=== PATIENT | female | born 1995 | race Caucasian/White ===

== ENCOUNTER 2023-01-22 09:24 | Outpatient (CLI) | payer BC, SELFPAY | END 2023-01-22 09:25 | disposition home or self-care (01) | PROVIDERS: Visit Provider Obstetrics & Gynecology | DX: O20.9 Hemorrhage in early pregnancy, unspecified (principal) | CPT/HCPCS: 84702; 86850; 86900; 86901 ==

== ENCOUNTER 2023-01-24 10:09 | Outpatient (CLI) | payer BC, SELFPAY | END 2023-01-24 10:10 | disposition home or self-care (01) | LOC: NFLDREF 01-26 05:50 | PROVIDERS: Visit Provider Obstetrics & Gynecology | DX: O20.9 Hemorrhage in early pregnancy, unspecified (principal) | CPT/HCPCS: 84702 ==

== ENCOUNTER 2023-01-31 09:50 | Outpatient (CLI) | payer BC, SELFPAY | END 2023-01-31 09:51 | disposition home or self-care (01) | LOC: NFLDREF 02-03 17:58 | PROVIDERS: Visit Provider Obstetrics & Gynecology | DX: O03.9 Complete or unspecified spontaneous abortion without complication (principal) | CPT/HCPCS: 84702 ==

== ENCOUNTER 2023-02-07 09:35 | Outpatient (CLI) | payer BC, SELFPAY | END 2023-02-07 09:36 | disposition home or self-care (01) | LOC: NFLDREF 02-08 01:53 | PROVIDERS: Visit Provider Obstetrics & Gynecology | DX: O03.9 Complete or unspecified spontaneous abortion without complication (principal) | CPT/HCPCS: 84702 ==

== ENCOUNTER 2023-02-19 09:24 | Outpatient (CLI) | payer BC, SELFPAY | END 2023-02-19 09:25 | disposition home or self-care (01) | LOC: NFLDREF 02-21 10:17 | PROVIDERS: Visit Provider Obstetrics & Gynecology | DX: O03.9 Complete or unspecified spontaneous abortion without complication (principal) | CPT/HCPCS: 84702 ==

== ENCOUNTER 2023-05-17 08:05 | Outpatient (CLI) | payer BC, SELFPAY ==
--- NOTE | 2023-05-17 08:15 | CRLHL7_ITS ---
For Patients: As a result of the Cures Act, medical imaging exams and procedure reports are released immediately into your electronic medical record. You may view this report before your referring provider. If you have questions, please contact your health care provider. INDICATION: First trimester scan, establish dates. COMPARISON: None. TECHNIQUE: Real-time lockett-scale imaging of the pelvis was performed. FINDINGS: Sonographic imaging demonstrates a single living intrauterine gestation. The embryo demonstrates a regular cardiac rate measuring 141 beats per minute. The embryo`s crown-rump length measurement of 0.9 cm corresponds to a gestational age of 6 weeks 6 days with a sonographic due date of 01/04/2024. There is a normal-appearing yolk sac. There are no gross abnormalities noted within the embryo at this early state of development. The gestational sac has a normal appearance. There is no evidence of a perigestational hemorrhage. The amount of fluid within the sac appears appropriate for gestational age. The cervix is closed. The myometrium appears normal. The ovaries are of normal size. Corpus luteal cyst left ovary. There are no suspicious fluid collections noted in the cul-de-sac. IMPRESSION: Normal first trimester OB ultrasound exam. Gestational age calculated at 6 weeks 6 days with a sonographic due date of 01/04/2024. Dictated by Baljit Sandoval MD @ 05/17/2023 10:07:15 AM (Electronically Signed)
== END 2023-05-17 08:06 | disposition home or self-care (01) ==
LOC: US 08:06
PROVIDERS: Visit Provider Registered Nurse
DX: Z34.91 Encounter for supervision of normal pregnancy, unspecified, first trimester (principal); Z3A.01 Less than 8 weeks gestation of pregnancy
CPT/HCPCS: 76817; 86703; 86706; 86803; 86850; 86900; 86901; 87086; 87340; 87491; 87591

== ENCOUNTER 2023-05-17 09:31 | Outpatient (CLI) | payer BC, SELFPAY ==
[2023-05-17 19:16] LABS: Chlamydia DNA Amplified* Not Detected (No Detected); GC DNA Amplified* Not Detected (No Detected)
== END 2023-05-17 09:32 | disposition home or self-care (01) ==
PROVIDERS: PCP Physician Assistant; Visit Provider Physician Assistant
DX: Z34.81 Encounter for supervision of other normal pregnancy, first trimester (principal)
CPT/HCPCS: 86592; 86703; 86704; 86706; 86762; 86787; 86803; 86850; 86900; 86901; 87086; 87340; 87491; 87591

== ENCOUNTER 2023-08-17 09:03 | Outpatient (CLI) | payer BC, MEDICAID, SELFPAY ==
--- NOTE | 2023-08-17 09:15 | US_ITS ---
Patient: KAMRYN LOCKE Facility:?[facility] Patient ID:?[id number] Site Patient ID:?[id number]. Site :?[id number] Study:?US-OB Pelvis OB > 14wks-08/17/2023 10:52:22 AM Ordering Physician:Li Koenig Final Report: INDICATION: Evaluate anatomy. COMPARISON: 06/26/2023, 05/17/2023 TECHNIQUE: Real time lockett scale imaging of the fetus was performed as well as color Doppler analysis of the umbilical vessels. FINDINGS: Sonographic imaging demonstrates a single living intrauterine gestation. Fetus demonstrates a regular cardiac rate of 138 beats per minute. Fetus has a vertex position. The placenta lies posteriorly without evidence of placenta previa. Placental edge 5.7 cm from the internal cervical os. Amniotic fluid volume appears normal. Single deepest vertical pocket: 3.5 cm. The cervix is closed and measures 3.9 cm in length. The composite ultrasound gestational age is calculated at 20 weeks 5 days with an estimated sonographic due date of 12/30/2023. The estimated weight is 380 grams which lies at the 88th %. The following biometric measurements were obtained: Biparietal diameter: 4.9 cm/20 weeks 6 days 82nd% Head circumference: 17.9 cm/20 weeks 2 days 58th% Abdominal circumference: 15.7 cm/20 weeks 6 days 73rd% Femur length: 3.5 cm/20 weeks 6 days 73rd% The HC/AC ratio measures: 1.14 range (1.06-1.25) On anatomic survey, there is a normal appearance of the cerebral ventricles, cavum septi pellucidi, cisterna magna and cerebellum. The nose, lips, and facial profile appear normal. The cervical, thoracic and lumbar spine are well visualized and appear normal. There is a normal four-chamber heart view and the left and right ventricular outflow tracts appear normal. The diaphragm and stomach appear normal. Normal bladder. Bilateral renal pelviectasis measuring 5.8 millimeters on the right and 4.6 millimeters on the left. There is a normal three-vessel cord and cord insertion site. The four extremities appear normal. IMPRESSION: Concordance of clinical and sonographic dating. Bilateral renal pelviectasis. Follow-up in the 3rd trimester recommended. Remainder of the anatomic survey is normal. Dictated by Baljit Sandoval MD @ 08/17/2023 12:12:44 PM Signed by:?Baljit Sandoval MD @08/17/2023 12:12:44 PM (Electronic Signature)
== END 2023-08-17 09:04 | disposition home or self-care (01) ==
LOC: US 09:04
PROVIDERS: Visit Provider Obstetrics & Gynecology
DX: Z34.92 Encounter for supervision of normal pregnancy, unspecified, second trimester (principal); Z3A.20 20 weeks gestation of pregnancy
CPT/HCPCS: 76805

== ENCOUNTER 2023-10-12 09:32 | Outpatient (CLI) | payer MEDICAID, SELFPAY ==
--- NOTE | 2023-10-12 10:00 | CRLHL7_ITS ---
For Patients: As a result of the Century Cures Act, medical imaging exams and procedure reports are released immediately into your electronic medical record. You may view this report before your referring provider. If you have questions, please contact your health care provider. INDICATION: Follow-up renal pelviectasis COMPARISON: 08/17/2023 TECHNIQUE: Real-time lockett-scale imaging of the pelvis was performed. FINDINGS: heart rate 149 beats per minute. Vertex position. Left posterior placenta. Amniotic fluid volume is normal with 6.0 cm single deepest pocket. Left renal pelvis measures 4 millimeters. Right renal pelvis measures 2 millimeters. Previously, the renal pelvis measured 5-6 millimeters. IMPRESSION: The renal pelvis has decreased bilaterally since the prior study with both measurements within normal limits at this gestational age. Dictated by Baljit Sandoval MD @ 10/14/2023 7:01:57 AM (Electronically Signed)
== END 2023-10-12 09:33 | disposition home or self-care (01) ==
LOC: US 09:39
PROVIDERS: Visit Provider Obstetrics & Gynecology
DX: O99.013 Anemia complicating pregnancy, third trimester (principal); Z3A.28 28 weeks gestation of pregnancy
CPT/HCPCS: 76816; 82728; 86592

== ENCOUNTER 2023-11-13 17:15 | Outpatient (CLI) | payer BC, MEDICAID, SELFPAY ==
[2023-11-13 17:29] VITALS: BP 103/71; PULSE 101
[2023-11-13 17:30] VITALS: RESP 16; TEMP 36.8
[2023-11-13 17:43] VITALS: PULSE 99; O2SAT 98
[2023-11-13 18:22] LABS: Basophils Percent Auto 0.2 % (0.0-3.0); Hematocrit 28.9 % (33.0-51.0); Hemoglobin* 9.4 gm/dL (12.0-16.0); Immature Granulocytes Pct Auto 1.2 %; Lymphocytes Percent Auto 15.5 % (20-44); Mean Corpuscular HGB Conc 33 gm/dL (32-36); Mean Corpuscular Hemoglobin 27 pg (26-34); Mean Corpuscular Volume 83 fL (80-100); Monocytes Percent Auto 6.7 % (0.0-11.0); Neutrophils Percent Auto 75.4 % (42.0-72.0); Platelet Count* 231 K/uL (140-440); RDW Coefficient of Variation % 13.6 % (11.5-15.5); Red Blood Count 3.49 m/uL (4.00-5.20); White Blood Count* 11.24 K/uL (4.50-11.00)
[2023-11-13 18:30] LABS: Slide Review Reflex No
[2023-11-13 18:32] LABS: Albumin* 3.6 g/dL (3.3-5.0)
[2023-11-13 18:33] LABS: Chloride* 107 mmol/L (96-114); Potassium* 3.9 mmol/L (3.6-5.1); Sodium* 132 mmol/L (135-149)
[2023-11-13 18:35] LABS: Anion Gap 4 mEq/L (7-15); Aspartate Amino Transferase* 20 U/L (12-35); Bilirubin Total* 0.3 mg/dL (0.1-1.5); Carbon Dioxide* 21 mmol/L (20-32); Creatinine* 0.6 mg/dL (0.5-1.5); Estimated Glomerular Filt Rate 125 ml/min
[2023-11-13 18:36] LABS: Alanine Aminotransferase* 13 U/L (4-35); Alkaline Phosphatase* 92 U/L (40-150); Blood Urea Nitrogen* 14 mg/dL (5-24); Calcium* 9.1 mg/dL (8.4-10.6); Glucose* 90 mg/dL (60-115); Total Protein* 6.6 g/dL (6.0-8.3)
--- NOTE | 2023-11-13 18:39 | PM.OBLDTN ---
OB - Triage/Final Diagnosis Visit Information Time Seen by Provider: 18:00 Date Seen: 11/13/23 Date of evaluation: 11/13/23 Narrative: The patient is a 28 year old 1 para 0 at 32.4 weeks gestation by US, who presents for evaluation after having a near syncopal episode. She reported being a work and feeling flushed, sweating, and mildly nauseous. She stood up at that time and felt like she was going to pass out. She did not fall as a co-worker was able to support her. 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 She considers this high for her. Since then she's felt better but wanted to come in for an evaluation. She does feel dehydrated and that she doesn't frequently drink enough water. Endorses fatigue and intermittent dizziness with quick change in positioning. Discussed with patient that her anemia is a significant factor in these symptoms. She has not received her iron infusion yet. I will send a note to health science instructor to follow up on her iron infusion. Active movement. No labor symptoms. Denies Ctx, LOF, vaginal bleeding or abnormal vaginal discharge. Patient denies fever, chills, chest pain, SOB, n/v, headache, pain, hematuria or dysuria. Denies any recent illness exposure. Physical exam: General: No acute distress Psych: Alert and oriented x4, full affect HEENT: Normocephalic, atraumatic Heart: Regular rate and rhythm, no murmur rub or gallop Lungs: Clear to auscultation bilaterally Abdomen: Gravid. Soft, no tenderness, rebound, or guarding Skin: No lesions or rashes Lower extremities: No edema or erythema Pelvic exam: Deferred Plan: #Anemia - Hgb of 9.4 - Will order IV iron to be done in the outpatient setting #Vasovagal episode - BP WNL in triage - HR mild tachycardia in 100s. - Physical exam reassuring - Will PO hydrate for alleviation of symptoms - Pending CBC and CMP Wellbeing NST: 120s bpm, moderate variability, multiple accelerations, negative decelerations [place]: Irregular contractions, not palpable to patient. Next visit on 11/14. Evaluation Laboratory results: Laboratory Tests 11/13/23 Range/Units 18:10 WBC 11.24 H (4.50-11.00) K/uL RBC 3.49 L (4.00-5.20) m/uL Hgb 9.4 L (12.0-16.0) gm/dL Hct 28.9 L (33.0-51.0) % MCV 83 (80-100) fL MCH 27 (26-34) pg MCHC 33 (32-36) gm/dL RDW Coeff of Ethel 13.6 (11.5-15.5) % Plt Count 231 (140-440) K/uL Neut % (Auto) 75.4 H (42.0-72.0) % Lymph % (Auto) 15.5 L (20-44) % Crane % (Auto) 6.7 (0.0-11.0) % Eos % (Auto) 1.0 (0.0-7.0) % Baso % (Auto) 0.2 (0.0-3.0) % Neut # (Auto) 8.50 H (1.7-7.0) K/uL Lymph # (Auto) 1.70 (0.90-2.90) K/uL Crane # (Auto) 0.80 (0.00-0.90) K/UL Eos # (Auto) 0.10 (0.00-0.50) K/uL Baso # (Auto) 0.00 (0.00-0.30) K/uL Abs Immat Gran (auto) 0.10 (0.00-0.30) K/uL Imm/Tot Granulo (auto) 1.2 % Sodium Pending Potassium Pending Chloride Pending Carbon Dioxide Pending Anion Gap Pending BUN Pending Creatinine Pending Estimated GFR Pending Glucose Pending Calcium Pending Total Bilirubin Pending AST Pending ALT Pending Alkaline Phosphatase Pending Total Protein Pending Albumin Pending Vital signs: Vital Signs - 24 hr 11/13/23 17:29 11/13/23 17:30 11/13/23 17:43 Temperature 98.3 F Pulse Rate 101 H Respiratory Rate 16 Blood Pressure 103/71 Pulse Oximetry 98
--- NOTE | 2023-11-13 19:27 | PC.OBNST ---
NST Note NST Note Start: 11/13/23 17:31 Freq: ONCE Status: Active Protocol: Document 11/13/23 19:25 LINDSAY (Rec: 11/13/23 19:26 JRAdrián [id number]) NST Note 2 Para (# of births) 0 EDC 01/04/24 Gestational Age In Weeks & Days 32 Weeks & 4 Days Patient Presented with Complaint(s) of Other If Observation after an injury, describe Pt. passed out earlier Reactive Yes Appropriate for Gestational Age Yes RN Tae Weiss RN Date 11/13/23 Reactive Yes Appropriate for Gestational Age Yes MADDISON Wilson RN Date 11/13/23 OB NST charge Yes Complete NST Note via Write Note Yes The provider's electronic signature indicates the NST is reactive/appropriate for gestational age. *Note to provider: If an addendum is required, open the patient's chart and click on the note under the Nurse/Allied Health tab.
== END 2023-11-13 19:02 | disposition home or self-care (01) ==
LOC: OB OUT 17:16 → OB 17:23
PROVIDERS: Visit Provider Obstetrics & Gynecology
DX: O26.893 Other specified pregnancy related conditions, third trimester (principal); R55 Syncope and collapse; Z3A.32 32 weeks gestation of pregnancy
CPT/HCPCS: 36415; 59025; 80053; 85025; G0463

== ENCOUNTER 2023-11-15 09:16 | Outpatient (CLI) | payer BC, MEDICAID, SELFPAY ==
--- NOTE | 2023-11-15 09:15 | CRLHL7_ITS ---
For Patients: As a result of the Century Cures Act, medical imaging exams and procedure reports are released immediately into your electronic medical record. You may view this report before your referring provider. If you have questions, please contact your health care provider. INDICATION: size discrepancy, decreased movement TECHNIQUE: Real time lockett scale imaging of the fetus was performed. COMPARISON: 10/12/2023 FINDINGS: Sonographic imaging demonstrates a single living intrauterine gestation. Fetus demonstrates a regular cardiac rate of 131 beats per minute. Fetus has a vertex position. The placenta lies left posterior. Amniotic fluid volume appears normal and there is a single deepest pocket of 5.6 cm. The estimated weight is 2092gm which lies at the 44th %. On the prior OB ultrasound dated 08/17/2023 the estimated weight was at the 88th percentile. Left renal pelviectasis present measuring 7.7 millimeters, previously measuring 5 millimeters. Resolution of the right-sided pelviectasis. The fetus was active and demonstrated normal breathing movements. There was normal flexion and extension of the trunk and extremities. IMPRESSION: Normal biophysical profile score 8/8. Sonographic gestational age 33 weeks 0 days and a sonographic due date 01/03/2024. Good correlation with dates. Normal interval growth. Estimated weight 44th percentile. Abdominal circumference 53rd percentile. Left renal pelviectasis measuring 7.7 millimeters. follow-up recommended. Dictated by Baljit Sandoval MD @ 11/16/2023 6:36:56 AM (Electronically Signed)
== END 2023-11-15 09:17 | disposition home or self-care (01) ==
LOC: US 09:16
PROVIDERS: Visit Provider Obstetrics & Gynecology
DX: O26.849 Uterine size-date discrepancy, unspecified trimester (principal); O36.8930 Maternal care for other specified fetal problems, third trimester, not applicable or unspecified; Z3A.33 33 weeks gestation of pregnancy
CPT/HCPCS: 76816; 76819; 82728

== ENCOUNTER 2023-11-15 10:57 | Outpatient (RCR) | payer BC, MEDICAID, SELFPAY ==
--- NOTE | 2023-11-15 07:37 | URNOTE ---
Per Availity prior auth is not required for Infed ([id number]). ref #[id number]
[2023-11-15 11:15] VITALS: BP 102/64; PULSE 92; RESP 16; TEMP 36.5; O2SAT 100
[2023-11-15] MEDS: IRON DEXTRAN COMPLEX 25 MG in 0.9 % SODIUM CHLORIDE 100 ml 100 ML 402 MG IVPB (11:31)
[2023-11-15 11:52] VITALS: BP 113/78; PULSE 92; RESP 16; TEMP 36.9; O2SAT 100
[2023-11-15] MEDS: IRON DEXTRAN COMPLEX 975 MG in 0.9 % SODIUM CHLORIDE 250 ml 250 ML 269 MG IVPB (13:00)
[2023-11-15 14:15] VITALS: BP 116/73; PULSE 71; RESP 16; TEMP 36.5; O2SAT 98
[2023-11-15 14:45] VITALS: BP 114/75; PULSE 74; RESP 16; TEMP 36.4; O2SAT 98
== END 2024-05-13 23:59 | disposition home or self-care (01) ==
LOC: CCIC 10:57
PROVIDERS: PCP Obstetrics & Gynecology; Visit Provider Clinical Nurse Specialist
DX: O99.019 Anemia complicating pregnancy, unspecified trimester (principal)
CPT/HCPCS: 76816; 76819; 82728; 96365; 96376; J1750; J7050

== ENCOUNTER 2023-11-22 09:54 | Outpatient (CLI) | payer BC, MEDICAID, SELFPAY ==
--- NOTE | 2023-11-22 10:00 | CRLHL7_ITS ---
For Patients: As a result of the Century Cures Act, medical imaging exams and procedure reports are released immediately into your electronic medical record. You may view this report before your referring provider. If you have questions, please contact your health care provider. INDICATION: Decreased movements COMPARISON: none TECHNIQUE: Real time lockett scale imaging of the fetus was performed. Without non-stress testing. FINDINGS: Sonographic imaging demonstrates a single living intrauterine gestation. Fetus demonstrates a regular cardiac rate of 129 beats per minute. Fetus has a vertex position. The amniotic fluid volume appears somewhat echogenic and there is a single deepest pocket measurement of 7.2 cm. The fetus was active and demonstrated normal breathing movements. There was normal flexion and extension of the trunk and extremities. Kidneys are normal without pelviectasis. IMPRESSION: Normal biophysical profile score of 8 out of 8. Echogenic foci in the amniotic fluid. Kidneys are normal. Normal nose and lips. Dictated by Baljit Sandoval MD @ 11/23/2023 5:24:51 AM (Electronically Signed)
== END 2023-11-22 09:55 | disposition home or self-care (01) ==
LOC: US 09:54
PROVIDERS: Visit Provider Obstetrics & Gynecology
DX: O36.8190 Decreased fetal movements, unspecified trimester, not applicable or unspecified (principal)
CPT/HCPCS: 76819

== ENCOUNTER 2023-12-05 11:04 | Outpatient (CLI) | payer BC, MEDICAID, SELFPAY ==
--- NOTE | 2023-12-05 11:30 | CRLHL7_ITS ---
For Patients: As a result of the Century Cures Act, medical imaging exams and procedure reports are released immediately into your electronic medical record. You may view this report before your referring provider. If you have questions, please contact your health care provider. Indication: Vaginal spotting, asses placenta/ abruption, BPP, recheck renal. f/u growth. JOSE ENRIQUE: 01/04/2024 Technique: Real-time sonographic images of the pelvis were obtained transabdominally using grayscale, color, and Doppler imaging. Comparison: 11/22/2023 Findings: A single intrauterine is present in cephalic position. Cardiac activity in the fetus is demonstrated at 137 BPM. Mildly dilated left renal pelvis measuring 9.7 millimeter. GROWTH PARAMETER SIZE (cm) ESTIMATED AGE Biparietal diameter: 8.9 35 weeks 6 days Head circumference: 32.5 36 weeks 5 days Abdominal circumference: 31.9 35 weeks 6 days Femur length: 7.0 36 weeks 1 day Average Ultrasound Age (AUA) based on this exam: 36 weeks 1 day. JOSE ENRIQUE based on the AUA from this exam: 01/01/2024. Estimated weight (EFW): 2828 gm +/-424 gm. This corresponds to the 59 percentile based on the established JOSE ENRIQUE. HC/AC= 1.02 FL/AC= 22% Placenta: Posterior left. No previa or abruption. Amniotic Fluid: Single deepest pocket 6.5 centimeter. Biophysical profile: Breathin/2 Movement: 2/2 Tone: 2/2 Fluid volume: 2/2 Total: 88 Cervix is closed, measuring 3.5 centimeter in length. Impression: 1. Single living intrauterine gestation measuring 36 weeks 1 day by ultrasound in cephalic presentation, with heartrate 137 BPM. 2. Posterior left placenta without previa or abruption. 3. Amniotic fluid single deepest pocket measuring 6.5 centimeter. 4. BPP 8/8. 5. Mildly dilated left renal pelvis measuring 9.7 millimeter. No dilated ureter or urinary bladder is seen. Findings may represent ureteropelvic junction obstruction. Recommend continued attention on follow-up. Dictated by Mike Palomino MD @ 12/05/2023 12:26:35 PM (Electronically Signed)
== END 2023-12-05 11:05 | disposition home or self-care (01) ==
LOC: US 11:05
PROVIDERS: Visit Provider Obstetrics & Gynecology
DX: O46.93 Antepartum hemorrhage, unspecified, third trimester (principal); O35.EXX0 Maternal care for other (suspected) fetal abnormality and damage, fetal genitourinary anomalies, not applicable or unspecified; Z3A.36 36 weeks gestation of pregnancy
CPT/HCPCS: 76816; 76819; 87081; 87491; 87591; 87653

== ENCOUNTER 2023-12-05 12:01 | Outpatient (CLI) | payer BC, MEDICAID, SELFPAY ==
[2023-12-05 12:06] VITALS: PULSE 108; O2SAT 99
[2023-12-05 12:07] VITALS: BP 113/69; PULSE 99
[2023-12-05 13:53] LABS: Appearance Urine Clear (Clear); Bilirubin Urine Negative (Negative); Blood Urine 2+ (Negative); Color Urine Yellow (Yellow); Glucose Urine Negative (Negative); Ketones Urine Negative (Negative); Leukocyte Esterase Urine Trace (Negative); Nitrite Urine Negative (Negative); Protein Urine Negative (Negative); Urobilinogen Urine 0.2 (0.2-1.0)
[2023-12-05 14:41] LABS: Bacteria Urine Few; WBC Urine 0-2 (0-5)
--- NOTE | 2023-12-05 15:48 | P.OBLDTN_ITS ---
OB - Triage/Final Diagnosis Visit Information Time Seen by Provider: 16:00 Date Seen: 12/05/23 Narrative: The patient is a 28 year old at 35 weeks gestation by first trimester US who presents with vaginal bleeding. is complicated by history of vertebral artery dissection, anemia (s/p IV iron infusion), pyelectasis, celiac disease. She notes onset of some red blood on toilet paper in the bowel on Sunday, with pink/brown noted on subsequent wiping. 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 She was seen today in clinic by Nguyen Sarmiento, where upon pelvic exam no blood was noted in the vaginal vault. Proctoswab was utilized to evacuated cervical mucous, with note of bright red bleeding resulting. I was consulted and presented to the room. In clinic, I repeated her speculum exam where cervix appeared closed but friable. No discrete lesion, but the anterior margin has mildly raised appearance and posteriorly the cervix color is more violaceous and friable. No active bleeding noted. Had patient valsalva and cough repeatedly with no return of blood. No pooling of fluid. Nguyen completed wet prep, GC/chlamydia swabs and I recommended evaluation via NST. NST was initially notable for suspected sleep cycle, improved with at least one 15x15 qualifying acceleration noted after giving juice. In the interim, urgent US was coordinated to reassess placental location, rule out retroplacental clot, BPP, growth US and reassessment of kidneys. After US, I requested transfer to triage for extended monitoring. Since in triage, patient notes no ongoing bright red bleeding. She has had just a few tiny drops of old blood on her pad. She denies any cramping/contractions, but does have some low back pain that has been present intermittently. No leakin g of fluids. Endorses active movement. Evaluation Laboratory results: Laboratory Tests 12/05/23 Range/Units 13:10 Urine Color Yellow (Yellow) Urine Appearance Clear (Clear) Urine pH 7.0 (5.0-8.5) Ur Specific [place] 1.010 (1.000-1.030) Urine Protein Negative (Negative) Urine Glucose (UA) Negative (Negative) Urine Ketones Negative (Negative) Urine Blood 2+ A (Negative) Urine Nitrite Negative (Negative) Urine Bilirubin Negative (Negative) Urine Urobilinogen 0.2 (0.2-1.0) Ur Leukocyte Esterase Trace A (Negative) Urine RBC 2-5 A (0-2) Urine WBC 0-2 (0-5) Ur Squamous Epith Cells None (None-Few) Urine Bacteria Few A (None) Vital signs: Vital Signs - 24 hr 12/05/23 12:06 12/05/23 12:07 Pulse Rate 99 Blood Pressure 113/69 Pulse Oximetry 99 Comments: VS reviewed, within normal limits. General: Alert and oriented, in no acute distress Psych: Appropriate mood and affect Abdomen: Gravid. Non-tender on palpation. Uterine tone is soft. Pelvic: Per clinic exam, red blood noted in vaginal vault on repeat speculum exam. This was evacuated with proctoswab x3. Cervix is visually closed. No active bleeding is noted, though the cervix appears friable. Anterior margin has mildly raised appearance and posteriorly the cervix color is more violaceous and friable. Had patient valsalva and cough repeatedly with no return of blood through cervical os. No pooling of fluid. Nguyen completed wet prep, GC/chlamydia swabs. NST: Extended monitoring for several hours has been completed. NST has been entirely reassuring and reactive. Baseline is 120bpm, moderate variability, 15x15 accelerations present throughout, no decelerations noted. Formal US result from today: 1. Single living intrauterine gestation measuring 36 weeks 1 day by ultrasound in cephalic presentation, with heartrate 137 BPM. 59%ile. 2. Posterior left placenta without previa or abruption. 3. Amniotic fluid single deepest pocket measuring 6.5 centimeter. 4. BPP 8/8. 5. Mildly dilated left renal pelvis measuring 9.7 millimeter. No dilated ureter or urinary bladder is seen. Findings may represent ureteropelvic junction obstruction. Recommend continued attention on follow-up. Final Diagnosis (1) Vaginal bleeding in : Status: Acute Problem details: Dang is a 28 year old at 35w5d GA seen for extended monitoring in the se tting of vaginal bleeding in . is complicated by history of vertebral artery dissection, anemia (s/p IV iron infusion), pyelectasis, celiac disease. She was seen for clinic visit with Nguyen Sarmiento today, who performed pelvic exam in the setting of pink/red episode of bleeding x1 on 12/02. On speculum exam, no blood was noted in vaginal vault but cervical bleeding was incited with evacuating cervical mucous with a proctoswab. She utilized several swabs with return of bright red bleeding. I repeated pelvic exam, with no active bleeding noted but cervical friability noted. GC/chlamydia swab and wet prep were obtained and sent, subsequently have returned normal. Cervix appears closed visually, with no active bleeding noted on my exam or with Q-tip manipulation. No pooling, abnormal discharge or blood coming through os. monitoring was started in clinic which was reassuring, patient then had formal US. Placental location was left fundal (no previa) with no evidence of abruption. Normal amniotic fluid assessment and growth US, at 59%ile. Cervix was noted to be closed, 3.5cm in length. Reassessment of kidney showed left renal pelvis dilation at 9mm. BPP was 8/8. Extended monitoring occurred across 4 hours time, 3 of which in triage was entirely reassuring and reactive. No ongoing bleeding noted. I explained differential diagnosis for third trimester bleeding. Fortunately, her assessment for placental abruption and labor has been reassuring. I suspect likely etiology is cervical bleeding as first event was incited after using the bathroom and on today she only had bleeding after manipulation of the cervix with proctoswab. Recommend BMZ given possible delivery if her bleeding were to recur, discussed potential benefits and theoretical risks but that this is ACOG recommended until 37 weeks if delivery may occur in the next 1 week. Patient declined, wishes to discuss with her . Explained this could be completed in the clinic if she changes her mind. Very strict return precautions were reinforced for any recurrent bright red bleeding, abdominal pain, contractions, leaking of fluids or decreased movement. Will coordinate office visit for close interval follow up in the coming days.
--- NOTE | 2023-12-06 18:48 | PC.OBNST ---
NST Note NST Note Start: 12/06/23 18:47 Freq: Status: Active Protocol: Document 12/05/23 15:00 LEA (Rec: 12/06/23 18:48 MMB [id number]) NST Note 2 Para (# of births) 0 EDC 01/04/24 Gestational Age In Weeks & Days 35 Weeks & 6 Days Patient Presented with Complaint(s) of Vaginal bleeding Reactive Yes Appropriate for Gestational Age Yes RN Christina Weiss RN Date 12/05/23 Reactive Yes Appropriate for Gestational Age Yes MADDISON Lugo RN Date 12/05/23 OB NST charge Yes Complete NST Note via Write Note Yes The provider's electronic signature indicates the NST is reactive/appropriate for gestational age. *Note to provider: If an addendum is required, open the patient's chart and click on the note under the Nurse/Allied Health tab.
== END 2023-12-05 15:35 | disposition home or self-care (01) ==
LOC: OB OUT 12:02 → OB 12:03
PROVIDERS: Visit Provider Obstetrics & Gynecology
DX: O46.93 Antepartum hemorrhage, unspecified, third trimester (principal); Z3A.35 35 weeks gestation of pregnancy
CPT/HCPCS: 59025; 81001; 81003; 87086; G0463

== ENCOUNTER 2023-12-27 00:42 | Outpatient (CLI) | payer MEDICAID, SELFPAY ==
[2023-12-27 01:03] VITALS: BP 121/75; PULSE 118
[2023-12-27 01:06] VITALS: PULSE 114; RESP 18; TEMP 36.7; O2SAT 97
[2023-12-27] MEDS: hydrOXYzine pamoate 25 MG CAPSULE 100 MG PO (03:55)
[2023-12-27] MEDS: MORPHINE 10 MG/ML inj IM (03:59)
--- NOTE | 2023-12-27 04:57 | PC.OBNST ---
NST Note NST Note Start: 12/27/23 00:46 Freq: ONCE Status: Active Protocol: Document 12/27/23 04:56 LEA (Rec: 12/27/23 04:57 LEA [id number]) NST Note 2 Para (# of births) 0 EDC 01/04/24 Gestational Age In Weeks & Days 38 Weeks & 6 Days Patient Presented with Complaint(s) of Contractions/cramping Reactive Yes Appropriate for Gestational Age Yes MADDISON Stover, RN Date 12/27/23 Reactive Yes Appropriate for Gestational Age Yes MADDISON Silva, MADDISON Date 12/27/23 OB NST charge Yes Complete NST Note via Write Note Yes The provider's electronic signature indicates the NST is reactive/appropriate for gestational age. *Note to provider: If an addendum is required, open the patient's chart and click on the note under the Nurse/Allied Health tab.
== END 2023-12-27 04:10 | disposition home or self-care (01) ==
LOC: OB OUT 00:43 → OB 00:44
PROVIDERS: Visit Provider Obstetrics & Gynecology
DX: O47.1 False labor at or after 37 completed weeks of gestation (principal); Z3A.38 38 weeks gestation of pregnancy
CPT/HCPCS: 59025; G0463; A9270; J2270

== ENCOUNTER 2023-12-28 10:26 | Inpatient (IN) | payer MEDICAID, SELFPAY ==
[2023-12-28] VITALS (131 sets, daily range): BP systolic 95–162; BP diastolic 52–115; PULSE 92–209; RESP 16–20; TEMP 36.6–37.2; O2SAT 82–100; BMI 29.5
[2023-12-28 11:34] LABS: Basophils Percent Auto 0.2 % (0.0-3.0); Eosinophils Percent Auto 1.1 % (0.0-7.0); Hematocrit 37.8 % (33.0-51.0); Hemoglobin* 12.4 gm/dL (12.0-16.0); Immature Granulocytes Pct Auto 1.3 %; Lymphocytes Percent Auto 12.7 % (20-44); Mean Corpuscular HGB Conc 33 gm/dL (32-36); Mean Corpuscular Hemoglobin 28 pg (26-34); Mean Corpuscular Volume 86 fL (80-100); Monocytes Percent Auto 5.7 % (0.0-11.0); Platelet Count* 203 K/uL (140-440); RDW Coefficient of Variation % 18.3 % (11.5-15.5); Red Blood Count 4.38 m/uL (4.00-5.20); White Blood Count* 12.72 K/uL (4.50-11.00)
[2023-12-28 11:41] LABS: Slide Review Reflex No
--- NOTE | 2023-12-28 12:09 | P.LDBA_ITS ---
Subjective History of Present Illness Time Seen by Provider: 12:45 Date Seen: 12/28/23 Narrative: Caryn Leong is being admitted to Labor and Delivery for spontaneous onset of labor.. She is a 28 year old at 39 and 0/7 weeks gestation. Her full history and physical was dictated by Dr. Foreman on 12/20/2023. Please see this for details. Verbal consent obtained to perform artificial rupture of membranes. Specific Issues/Plans Spouse: Carlyle. Baby: Boy! # History of vertebral artery dissection in 2021. This was an incidental finding. Was treated with 81 mg of aspirin for 3 months ( it was partially healed at time a diagnosis) Follow-up imaging was normal. * Recommended 81 mg of aspirin, patient had slight tongue swelling during the entire 3 months she took the the aspirin and declines aspirin therapy at this time * Perinatology and Genetics consult: 06/26/23, no further recommendations # 35 5/7 weeks: Bright red cervical bleeding on exam. Wet prep neg, chlam/gc neg, US normal as below. Patient to L+D for monitoring. # History of ocular migraine, this is what prompted the imaging for the finding above # Celiac disease # Last Pap 2021?, records requested # Hep B nonimmune # Bilateral renal pelvis dilation at 20 weeks: 6 mm on right and 5 mm on left. * [id number] 06/08/2023 negative, boy * Repeat US for evaluation of renal pelves at 28 weeks: Left renal pelvis 4 mm, right renal pelvis 2 mm. SDP 6.0 cm. * US on 11/14 for EFW:Left renal pelviectasis present measuring 7.7 millimeters, previously measuring 5 millimeters. Resolution of the right-sided pelviectasis, BPP 11/21. Follow up postnatally # Anemia * Hemoglobin 9.4, ferritin 4.1 on 10/12/2023 * Recheck hemoglobin again at 32 weeks 11/15/2023: 9.1. Ferritin low. * Single dose iron infusion per protocol on 11/15/2023 Ultrasounds: Ultrasound on 06/26/2023 at 12 4/7 weeks gestation with MFM (JOSE ENRIQUE 01/04/24): CRL c/w 13 0/7 weeks, FHR 158 bpm, normal nuchal translucency, nasal bone present. 5/3: posterior placenta, 3 vessel cord, SDP 3.5, bilateral renal pelvis dilation (R = 6 mm, L = 5 mm), otherwise normal anatomy, EFW 88% with all growth parameters within normal ranges 11/15/2023: Vtx. SDP 5.6cm. BPP 8/8. EFW: 2092 g, 4 lb 10 oz, 44%. BPD 56%, HC 10%, AC 53%, FL 47%. Left renal pelviectasis present measuring 7.7 millimeters, previously measuring 5 millimeters. Resolution of the right-sided pelviectasis, BPP 8/8. 12/05/23: cephalic, SDP 6.5, BPP 8/8, posterior / left placenta, EFW 2828 g = 59%, AC 63%, all growth parameters within normal ranges. Rh positive: No rhogam Tdap: 10/26/23 SHARLENE/PQ 32 wk: GBS: Negative on 12/04 OB - Problem Based A/P Additional Plan (1) Spontaneous onset of labor: Status: Acute Plan: 1. The patient may have an epidural at anytime for labor analgesia if she desires. 2. GBS negative. 3. Blood type is A+ 4. Early labor. OB Exam Physical Exam Vital signs: Temp Pulse BP 98.5 F 129 H 132/86 12/28/23 10:41 12/28/23 10:41 12/28/23 10:41 Narrative: GENERAL APPEARANCE: Pleasant, , well-groomed woman uncomfortable with contractions VITAL SIGNS: as noted in nursing notes HEAD: Normocephalic, atraumatic. LUNGS: Clear to auscultation bilaterally without wheezes, rales or rhonchi. HEART: Regular rate and rhythm with normal S1 and S2. No gallop, rub or murmur. ABDOMEN: Gravid. Soft, nontender, nondistended, with normal bowels sounds throughout. PRESENTATION: Vertex by Alex's maneuvers. EFM: Baseline: 130 bpm/Accelerations: present/Decelerations: Absent. Reactive. Category 1. TOCO: Q4-5 minutes. SVE per nursin cm/ 90 %/ -1/soft/mid. AROM: Clear fluid EXTREMITIES: No cyanosis, clubbing, or edema. No varicosities. NEUROLOGIC: Normal gait and balance. Normal deep tendon reflexes at bilateral patella 2+/2, equal without clonus. PSYCHIATRIC: alert and oriented x3. Normal speech pattern, eye contact and affect. SKIN: Warm, dry, and well perfused. Good turgor. No lesions, nodules or rashes.
[2023-12-28] MEDS: LACTATED RINGERS 1000 ML 1,000 ML 1200 ML IV ×2 (13:42→14:26)
[2023-12-28] MEDS: ROPIVACAINE 0.2% 100 ml 100 ML 12 MG EPIDURAL ×2 (14:30→22:54)
[2023-12-28] MEDS: BUPIVACAINE 0.25% PF 10 ML 10 ML ML EPIDURAL (14:30)
[2023-12-28] MEDS: fentaNYL 100 MCG/2 ML inj EPIDURAL (14:44)
--- NOTE | 2023-12-28 14:45 | PM.ANBPRC ---
[facility] Medical History Spontaneous miscarriage ?O03.9 - Complete or unspecified spontaneous without complication (ICD-10) Vertebral artery dissection ?I77.74 - Dissection of vertebral artery (ICD-10) Folliculitis ?L73.9 - Follicular disorder, unspecified (ICD-10) Surgical History History of appendectomy ?Z90.49 - Acquired absence of other specified parts of digestive tract (ICD-10) Family History Father Adopted Mother Adopted Social History Narrative: Occupation: Did not indicate. Marital status: . Buddhist/cultural needs: no. Chemical or radiation exposure: no. Pre- tobacco use: no. Pre- alcohol use: 1-3 per week. Current tobacco use: no. Current alcohol use: no. Recreational drug use: no. Dietary restrictions: Gluten free. Blood transfusion acceptable in an emergency: yes. PSYCHOSOCIAL HISTORY: History of depression or currently depressed: Denies. Current or past physical, emotional, or sexual mistreatment: Denies. Problems that will make it hard to make it to appointments: No. What is your current living situation?: I presently have a place to live Problems where you live: no known problems In the past 12 months, utilities in danger of being shut off: no In past 12 months, lack of transportation kept you from medical appts, meetings, work, or getting things needed for daily living: no In the past 12 mos, have been you worried that your food would run out before you had money to buy more?: never true In the past 12 mos, the food you bought just didn't last and you didn't have money to buy more?: never true Smoking Status: Never smoker How often does anyone, including family, friends and others, physically hurt you: never How often does anyone, including family, friends and others, insult or talk down to you: never How often does anyone, including family, friends and others, threaten you with harm: never How often does anyone, including family, friends and others, scream or curse at you: rarely Little interest or pleasure in doing things: not at all Feeling down, depressed, or hopeless: not at all Meds Home Medications and Allergies Home Medications ?Medication ?Instructions ?Recorded ?Confirmed ?Type docosahexaenoic acid 200 mg 200 mg PO DAILY 05/17/23 12/28/23 History capsule ( DHA) acetaminophen 325 mg capsule 325 mg PO ONCE PRN 08/17/23 12/28/23 History (Tylenol) Allergies Allergy/AdvReac Type Severity Reaction Status Date / Time gluten Allergy Severe Diarrhea Verified 12/26/23 10:13 Penicillins Allergy itchy Verified 12/26/23 10:13 throat Sulfa (Sulfonamide Allergy hives Verified 12/26/23 10:13 Antibiotics) zantac Allergy hives Uncoded 12/26/23 10:13 Results Labs Labs: Laboratory Results - last 24 hr 12/28/23 11:27 WBC 12.72 H RBC 4.38 Hgb 12.4 Hct 37.8 MCV 86 MCH 28 MCHC 33 RDW Coeff of Ethel 18.3 H Plt Count 203 Neut % (Auto) 79.0 H Lymph % (Auto) 12.[address] [place] % (Auto) 5.7 Eos % (Auto) 1.1 Baso % (Auto) 0.2 Neut # (Auto) 10.00 H Lymph # (Auto) 1.60 [place] # (Auto) 0.70 Eos # (Auto) 0.10 Baso # (Auto) 0.00 Abs Immat Gran (auto) 0.20 Imm/Tot Granulo (auto) 1.3 Vital Signs Vital Signs: Last Vital Signs Temp 97.9 F 12/28/23 13:11 Pulse 104 H 12/28/23 14:43 BP 134/78 12/28/23 14:43 Pulse Ox 100 12/28/23 14:29 Weight: 80.541 kg Height: 165.1 cm Anesthesia Procedures Epidural Insertion Patient Location: OB Start Time: 14:10 Stop Time: 14:45 Start Date: 12/28/23 Stop Date: 12/28/23 Reason for Block: procedure for pain Patient Position: sitting Performed By: Tk Ocampo Preanesthetic Checklist: IV checked, risks and benefits discussed, monitors and equipment checked, pre-op evaluation, timeout performed and anesthesia consent Prep: chlorhexidine gluconate Monitoring: blood pressure monitoring, continuous pulse oximetry and heart rate Approach: midline Vertebral Space: lumbar (1-5) Epidural Technique: SHEFALI saline Needle Type: Tuohy needle Injection Technique: continuous catheter Needle gauge: 17 Needle Length (cm): 10 cm Needle Insertion Depth (cm): 7 Catheter Gauge: 19 Catheter Type: multi-orifice Catheter at skin depth (cm): 13 Test Dose Result: negative and lidocaine 1.5% with epinephrine 1 to 200,000
[2023-12-28] MEDS: LIDOCAINE 2% (PF) 5 ML VIAL EPIDURAL (15:02)
[2023-12-28] MEDS: fentaNYL 100 MCG/2 ML inj 50 MCG IVP (15:14)
--- NOTE | 2023-12-28 15:34 | P.ANBPRC_ITS ---
[facility] Medical History Spontaneous miscarriage ?O03.9 - Complete or unspecified spontaneous without complication (ICD-10) Vertebral artery dissection ?I77.74 - Dissection of vertebral artery (ICD-10) Folliculitis ?L73.9 - Follicular disorder, unspecified (ICD-10) Surgical History History of appendectomy ?Z90.49 - Acquired absence of other specified parts of digestive tract (ICD- 10) Family History Father Adopted Mother Adopted Social History Narrative: Occupation: Did not indicate. Marital status: . Congregation/cultural needs: no. Chemical or radiation exposure: no. Pre- tobacco use: no. Pre- alcohol use: 1-3 per week. Current tobacco use: no. Current alcohol use: no. Recreational drug use: no. Dietary restrictions: Gluten free. Blood transfusion acceptable in an emergency: yes. PSYCHOSOCIAL HISTORY: History of depression or currently depressed: Denies. Current or past physical, emotional, or sexual mistreatment: Denies. Problems that will make it hard to make it to appointments: No. What is your current living situation?: I presently have a place to live Problems where you live: no known problems In the past 12 months, utilities in danger of being shut off: no In past 12 months, lack of transportation kept you from medical appts, meetings, work, or getting things needed for daily living: no In the past 12 mos, have been you worried that your food would run out before you had money to buy more?: never true In the past 12 mos, the food you bought just didn't last and you didn't have money to buy more?: never true Smoking Status: Never smoker How often does anyone, including family, friends and others, physically hurt you : never How often does anyone, including family, friends and others, insult or talk down to you: never How often does anyone, including family, friends and others, threaten you with harm: never How often does anyone, including family, friends and others, scream or curse at you: rarely Little interest or pleasure in doing things: not at all Feeling down, depressed, or hopeless: not at all Meds Home Medications and Allergies Home Medications ?Medication ?Instructions ?Recorded ?Confirmed ?Type docosahexaenoic acid 200 mg 200 mg PO DAILY 05/17/23 12/28/23 History capsule ( DHA) acetaminophen 325 mg capsule 325 mg PO ONCE PRN 08/17/23 12/28/23 History (Tylenol) Allergies Allergy/AdvReac Type Severity Reaction Status Date / Time gluten Allergy Severe Diarrhea Verified 12/26/23 10:13 Penicillins Allergy itchy Verified 12/26/23 10:13 throat Sulfa (Sulfonamide Allergy hives Verified 12/26/23 10:13 Antibiotics) zantac Allergy hives Uncoded 12/26/23 10:13 Results Labs Labs: Laboratory Results - last 24 hr 12/28/23 11:27 WBC 12.72 H RBC 4.38 Hgb 12.4 Hct 37.8 MCV 86 MCH 28 MCHC 33 RDW Coeff of Ethel 18.3 H Plt Count 203 Neut % (Auto) 79.0 H Lymph % (Auto) 12.7 L [place] % (Auto) 5.7 Eos % (Auto) 1.1 Baso % (Auto) 0.2 Neut # (Auto) 10.00 H Lymph # (Auto) 1.60 [place] # (Auto) 0.70 Eos # (Auto) 0.10 Baso # (Auto) 0.00 Abs Immat Gran (auto) 0.20 Imm/Tot Granulo (auto) 1.3 Vital Signs Vital Signs: Last Vital Signs Temp 97.9 F 12/28/23 13:11 Pulse 97 12/28/23 15:33 BP 102/52 L 12/28/23 15:33 Pulse Ox 99 12/28/23 15:32 Weight: 80.541 kg Height: 165.1 cm Anesthesia Procedures Epidural Insertion Patient Location: OB Start Time: 15:00 Stop Time: 15:30 Start Date: 12/28/23 Stop Date: 12/28/23 Reason for Block: procedure for pain Patient Position: sitting Performed By: Gia Valverde Preanesthetic Checklist: IV checked, risks and benefits discussed, monitors and equipment checked, timeout performed and anesthesia consent Prep: chlorhexidine gluconate Monitoring: blood pressure monitoring, continuous pulse oximetry and heart rate Approach: midline Vertebral Space: lumbar (1-5) Epidural Technique: SHEFALI saline Needle Type: Tuohy needle Injection Technique: continuous catheter Needle gauge: 17 Needle Length (cm): 10 cm Needle Insertion Depth (cm): 7 Catheter Gauge: 19 Catheter Type: multi-orifice Catheter at skin depth (cm): 13 Test Dose Result: negative and lidocaine 1.5% with epinephrine 1 to 200,000 Events: other (Prior to placement, removed insitu epidural with tip intact. Bolus of 0.25% Bupivacaine, 4mL. )
[2023-12-28] MEDS: CALCIUM CARBONATE 500 MG CHEW PO (18:56)
--- NOTE | 2023-12-28 21:08 | PM.OBPNL ---
Subjective Time Seen by Provider: 21:08 Date Seen: 12/28/23 Narrative: Subjective: Comfortable with an epidural. Patient is not on Pitocin. Vital signs: Per electronic medical record. EFM: Baseline 130's, positive accelerations, negative decelerations, moderate variability, reactive. Category 1. [place]: Contractions every 2 minutes. SVE: 8 cm/100 %/0. Essentially unchanged from cervical check by the nursing staff at 7:00 p.m. Assessment: 28-year-old 2 para 0 at 39 weeks 0 days gestation spontaneous labor Plan: 1. Will reassess cervical dilation again in 2 hours. If no cervical change at that point would consider for arrest of dilation. 2. Continue epidural for labor analgesia Objective Vital Signs: Last Vital Signs Temp 98.6 F 12/28/23 18:00 Pulse 114 H 12/28/23 21:04 BP 107/59 L 12/28/23 21:04 Pulse Ox 96 12/28/23 21:03
[2023-12-28] MEDS: LACTATED RINGERS 1000 ML 1,000 ML 125 ML IV (22:35)
[2023-12-29] VITALS (90 sets, daily range): BP systolic 78–131; BP diastolic 45–83; PULSE 86–162; RESP 12–20; TEMP 36.7–37.6; O2SAT 86–99
[2023-12-29] MEDS: OXYTOCIN 30 unit/500 ML in NS 30 UNIT/500 ML BAG IVPB (00:35)
--- NOTE | 2023-12-29 00:53 | PM.OBPNL ---
Subjective Time Seen by Provider: 00:15 Date Seen: 12/29/23 Narrative: Subjective: Patient is comfortable w/ epidural/uncomfortable with contractions. Probable consent obtained to place an intrauterine pressure catheter if there is no change in dilation. Vital signs: Per electronic medical record. EFM: Baseline 130's, positive accelerations, no decelerations, moderate variability, reactive. Category 1. [place]: Contractions every 2 minutes. IUPC placed. SVE: 9 cm/100 %/+1. Assessment: 28-year-old 2 para 0 at 39 weeks 1 days gestation arrest of dilation with inadequate uterine contractions with intrauterine pressure catheter placement. Plan: 1. Start Pitocin per labor induction/augmentation protocol. 2. Continue epidural for labor analgesia 3. If continues to have arrest of dilation with adequate contractions with IUPC will recommend for delivery. Objective Vital Signs: Last Vital Signs Temp 99.0 F 12/28/23 23:33 Pulse 110 H 12/29/23 00:34 Resp 16 12/28/23 23:33 BP 131/69 12/29/23 00:34 Pulse Ox 97 12/29/23 00:48
--- NOTE | 2023-12-29 03:45 | P.OBPN_ITS ---
Subjective Time Seen by Provider: 03:45 Date Seen: 12/29/23 Narrative: Subjective: Patient is comfortable w/ epidural/uncomfortable with contractions. Pitocin: 6 milliunits/minute. Vital signs: Per electronic medical record. EFM: Baseline 150, positive accelerations, [+/-] decelerations, moderate variability, reactive. Category 1. IUPC: Contractions every 2 minutes. [place] units 100-120/10min. SVE: 9+cm/100 %/+1. Assessment: 28-year-old 2 para 0 at 39 weeks 1 days gestation arrest of dilation Plan: 1. Stop Pitocin. 2. Recommended primary low-transverse consent form reviewed and signed. Objective Vital Signs: Last Vital Signs Temp 99.6 F 12/29/23 03:11 Pulse 144 H 12/29/23 03:33 Resp 20 12/29/23 03:05 BP 113/79 12/29/23 03:33 Pulse Ox 86 L 12/29/23 03:34
--- NOTE | 2023-12-29 03:48 | PM.PROC ---
Procedure Note Time Seen by Provider: 05:50 Date Seen: 12/29/23 Date of procedure: 12/29/23 Will [facility] bill your pro fee for this procedure?: Yes Procedure: Preoperative diagnosis: 28-year-old 2 para 0 at 39 and 1/7 weeks with arrest of dilation Postoperative diagnosis: Same, ROT presentation Procedure: Primary low-transverse section Anesthesia: Epidural Surgeon: Yael De Leon MD Victim Witness Administrator: Not applicable Quantitative blood loss: 1125 mL IV Fluid: 1000 mL Urine output: 150 mL Specimen: None Drain(s): Marquez to gravity Indications: Arrest of dilation Findings: A live male infant was delivered from the ROT position at 5:10 a.m. The vertex was somewhat impacted in the pelvis which required nurse to push the vertex up toward the surgical field. Apgars were 8 at 1 min and 9 at 5 min, respectively. Infant weight: 7 lb 13 oz. Nuchal cord(s): No. The placenta was delivered spontaneously and complete at 5:12 a.m. Amniotic fluid: Thick meconium-stained. Normal uterus, fallopian tubes and ovaries were noted. Other findings: Uterine atony noted after delivery of the placenta treated with 40 units Pitocin in 1 L IV fluid wide open, 1 g IV TXA, 0.2 mg Methergine IM x1. Procedure: Caryn was taken to the OR where epidural anesthetic was found be adequate. A Marquez catheter was placed. The patient was then placed in the dorsal supine position with a leftward tilt. She was then prepped and draped in a normal sterile manner. A Pfannenstiel skin incision was made and carried through sharply to the underlying layer of fascia. Fascia was incised in the midline and this incision carried laterally with Mcrae scissors. The superior aspect of fascial incision was grasped with Fela clamps, tented up, and the rectus muscles dissected off with a combination of blunt and sharp dissection. The inferior aspect of the fascial incision was not dissected off the the rectus muscles. The rectus muscles were in the midline. The peritoneum was entered bluntly. This opening was extended bluntly. An Ozzie-O self-retaining retractor was placed. A bladder flap was not created. Uterus was incised in a low transverse manner in the midline. This incision carried laterally with blunt pressure on the inferior and superior aspects of the uterine incision. The amniotic sac was ruptured. The 's head and body was delivered atraumatically. The was shown to the patient and her support person and then handed to waiting pediatric and nursing staff. The placenta was delivered spontaneously. The uterus was cleared of clots and debris. The uterine incision was re-approximated with the uterus in vivo. The 1st layer using 0-Vicryl in a running, locked manner. The 2nd layer using 0-Monocryl in a running, vertical, imbricating layer. Additional sutures needed for hemostasis: No. Excellent hemostasis was verified. The Ozzie retractor was removed. The rectus muscles were not reapproximated. The rectus muscles were then closely inspected to verify hemostasis. Hemostasis was obtained with bipolar cautery. The fascia was then re-approximated using 0-Maxon loop in a running manner. The subcutaneous tissue was then irrigated with saline and hemostasis obtained with bipolar cautery. The subcutaneous tissue was re-approximated using 3-0 plain gut interrupted sutures in 1 layer. The skin was reapproximated using 4-0 Monocryl in a running subcuticular manner. Exofin skin adhesive and a Mepiplex dressing were applied. The patient tolerated this procedure well. Sponge, lap and instrument counts were correct x2 active to the procedure. Patient was taken to the recovery area in stable condition. The patient received 2 g of IV Ancef and 1 g IV azithromycin prior to skin incision.
[2023-12-29] MEDS: AZITHROMYCIN 500 MG in 0.9 % SODIUM CHLORIDE 250 ml 250 ML 255 MG IVPB (03:53)
[2023-12-29 04:02] LABS: Hemoglobin* 12.5 gm/dL (12.0-16.0)
[2023-12-29] MEDS: CEFAZOLIN 2 GM in 0.9 % SODIUM CHLORIDE Mini-bag 100 ML IVPB (04:59)
--- NOTE | 2023-12-29 05:20 | P.ANES_ITS ---
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
[2023-12-29] MEDS: KETOROLAC 30 MG/ML inj IVP ×4 (05:46→23:59)
--- NOTE | 2023-12-29 08:38 | W.PM.NB ---
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 Images saved: Yes Medications given in 5ml increments after negative aspiration: Marcaine %: 0.25 mL: 30 Needle gauge: 21 and Exparel mL: 10 Needle gauge: 21 Patient tolerated procedure well: Yes Block Charges Block Charge (with Pro Fee): TAP Bilateral Use of Ultrasound Machine for Block: Yes- US Guidance/pain block
[2023-12-29] MEDS: ACETAMINOPHEN 500 MG TABLET 1000 MG PO ×2 (08:49→14:02)
[2023-12-30] VITALS (11 sets, daily range): BP systolic 90–115; BP diastolic 59–77; PULSE 91–109; RESP 16–18; TEMP 36.3–36.8; O2SAT 97–98
[2023-12-30 01:46] LABS: Rapid Plasma Reagin (RPR) Non Reactive (Non Reactive)
[2023-12-30] MEDS: CALCIUM CARBONATE 500 MG CHEW PO (05:12)
[2023-12-30] MEDS: SIMETHICONE 80 MG TAB.CHEW PO (05:13)
[2023-12-30 05:38] LABS: Hemoglobin* 9.1 gm/dL (12.0-16.0)
[2023-12-30] MEDS: KETOROLAC 30 MG/ML inj IVP ×2 (05:50→12:05)
[2023-12-30] MEDS: ACETAMINOPHEN 500 MG TABLET 1000 MG PO ×2 (09:13→18:46)
[2023-12-30] MEDS: DOCUSATE SODIUM 100 MG CAPSULE PO (09:14)
--- NOTE | 2023-12-30 11:38 | PM.OBPNVD1 ---
OB - PN:Subj Subjective Date Seen: 12/30/23 Patient comments OB post-: no complaints [place] status: and doing well Narrative: The patient is postoperative day #1 following a primary low transverse section for arrest of dilatation and descent due to ROT position. She feels generally well this morning. She had had an episode around 5:00 a.m. of increased abdominal discomfort and distention, but that has resolved. She is using only Toradol and Tylenol for pain. She notes discomfort mostly when changing position. She is not yet passing flatus. OB - PN: Obj Exam Physical Exam: Vital signs: Temp Pulse Resp BP Pulse Ox O2 Del Method 97.3 F L 98 16 101/67 98 Room Air 12/30/23 08:59 12/30/23 08:59 12/30/23 08:59 12/30/23 08:59 12/30/23 08:59 12/30/23 08:59 Constitutional: Constitutional: no acute distress Routine Neck Exam: Neck: Present normal inspection Routine Respiratory Exam: Respiratory: Present CTA bilaterally; Absent respiratory distress Routine Cardiovascular Exam: Cardiovascular: Present RRR; Absent murmur Routine Abdominal Exam: Abdominal: Present distended (Mild gaseous distension) and soft; Absent tenderness Fundus: Present firm Routine Extremities Exam: Extremities: Present normal inspection and pedal edema; Absent calf tenderness Routine Neurological Exam: Neurological: Present alert and oriented X3 Routine Psychiatric Exam: Psychiatric: Present normal affect Wound Management: Method: suture Examination: Present clean, dry and intact; Absent erythematous Comments: Pfannenstiel incision OB - PN: Obj Data Labs Labs: Laboratory Results - last 24 hr 12/28/23 12/30/23 11:27 05:30 Hgb 9.1 L RPR Screen Non Reactive OB - PN: A/P Delivery Assessment and Plan (1) Status post primary low transverse section: Status: Acute Plan day: 1 Plan: routine care
--- NOTE | 2023-12-30 12:45 | PM.ANPOST ---
Post Anesthesia Note Post Anesthesia Note Patient seen: Inpatient Respiratory Status: adequate Cardiovascular Status: adequate Mental Status: baseline Pain: adequate Temp: baseline Anesthetic awareness: N/A Complications: none Follow care: none
[2023-12-30] MEDS: IBUPROFEN 600 MG TABLET PO ×2 (16:45→23:01)
[2023-12-31] MEDS: ACETAMINOPHEN 500 MG TABLET 1000 MG PO ×2 (01:51→09:36)
[2023-12-31] MEDS: IBUPROFEN 600 MG TABLET PO ×2 (05:08→11:04)
[2023-12-31 09:15] VITALS: BP 106/71; PULSE 109; RESP 17; TEMP 36.8; O2SAT 98
[2023-12-31] MEDS: DOCUSATE SODIUM 100 MG CAPSULE PO (09:38)
--- NOTE | 2023-12-31 09:44 | PM.OBDSVD1 ---
DS: Providers Provider Date Seen: 12/31/23 Date of admission: 12/28/23 10:26 Primary care physician: Not a Local Provider Admitting Clinician: Yael De Leon MD Attending Physician on discharge: Yael De Leon MD Date of Discharge: 12/31/23 DS: Diagnosis Discharge Diagnosis (1) Status post primary low transverse section: Status: Acute (2) Lactating mother: Status: Acute (3) Anemia, : Status: Acute Exam Narrative: Exam Narrative: GENERAL APPEARANCE:? normal affect, alert, no distress? MOOD:? appropriate? CHEST:? clear to auscultation and percussion? HEART:? regular rate and rhythm? ABDOMEN:? soft, non-tender the uterine fundus is U/2 and is appropriate for the stage of recovery. Incision well approximated without drainage, redness, or warmth.? EXTREMITIES:? normal and no edema? Const: Vital Signs, click to edit/add: Vital Signs - 24 hr 12/30/23 12:46 12/30/23 16:24 12/30/23 22:51 Temperature 97.8 F 97.8 F 98.2 F Pulse Rate [Right Pulse Oximeter] 97 109 H 109 H Respiratory Rate 16 16 16 Blood Pressure [Le ft Arm] 100/67 100/68 115/77 Pulse Oximetry 97 97 Oxygen Delivery Me thod Room Air Room Air Room Air 12/31/23 09:15 Temperature 98.2 F Pulse Rate [Right Pulse Oximeter] 109 H Respiratory Rate 17 Blood Pressure [Le ft Arm] 106/71 Pulse Oximetry 98 Oxygen Delivery Me thod Room Air Documenting provider has reviewed patient's vital signs: yes OB - DS: Summary Hospital Course Hospital Course: Dang is a 28 year old G 2 P 1 at 39.1 weeks gestation that was admitted to the Center on 12/28/23 for spontaneous onset of labor. She had an delivery for failure to progress. She delivered a viable male . She is breast feeding and feels it is going good. Encouraged her to see . the patient has done well. Her pain is well controlled with current medications.? She has no new complaints.? Urinary output is adequate and she is voiding without difficulty.? Has a good appetite, is tolerating a general diet, is passing flatus, and has had a small bowel movement.? Has scant amount of rubra lochia.? She is ambulating well. She is unsure what she is planning for contraception but considering condoms. States that she doesn't want to back on oral contraceptives, reviewed other options. She is desires discharge today. She will plan to continue taking oral iron supplement that she was taking before her iron infusion. Peripartum Data delivery method: Primary C/S; Labored Procedures: Procedures Operation Date: 12/29/23 04:45 Actual Procedure Side Surgeon p Section Not Applicable Yael De Leon MD complications: none Infant Gender: Male Infant Discharge Plan: Home Status at Discharge Functional status at discharge: independent ambulation Overall status at discharge: patient is progressing back to baseline Time Spent with Patient Time attestation: Total time spent providing and/or coordinating discharge services: Discharge Plan Discharge Disposition: Home, Self-Care Date of Admission: 12/28/23 10:26 Attending Provider on Discharge: Gloria Romero Primary Care Provider: Provider,Not a Local Condition: Stable Anticipated Discharge Date/Time: 12/31/23 10:00 Discharge Medications: New docusate sodium 100 mg Capsule 100 mg PO BID PRNQty: 120 0RF Rx Instructions: Take 1-2 tablets daily as needed for constipation. ibuprofen 600 mg Tablet 600 mg PO Q6H PRN (Reason: Pain) Qty: 90 0RF oxycodone 5 mg Tablet 5 - 10 mg PO Q4H PRN (Reason: Pain) Qty: 5 0RF Continued DHA 200 mg capsule 200 mg PO DAILY acetaminophen [Tylenol] 325 mg capsule 325 mg PO ONCE PRN Discharge Orders: Discharge Order (Routine); Ordered 12/31/23 Ordered By: Gloria Romero Patient Education: OB Over the Counter Medication Information, OB /Breast Feeding Additional Instructions: Discharge instructions were reviewed with the patient including signs and symptoms of infection and home going medications? ?? Activity restrictions:? Lifting Restrictions: 20 pounds for 6 weeks? No high-impact or core exercises for 6 weeks.?? No not submerge incision under water X 2 weeks?? Nothing vaginally for 6 weeks: no tampons or intercourse? Do not drive while taking narcotic pain medication(s)? Off Work or School for 8 weeks? ?? Symptoms to report to doctor:? -Bleeding that saturates more than one pad per hour? -Passing clots larger than the size of a golf ball? -Pain not relieved by prescribed medication? -Fever above 100.4 degrees Fahrenheit? -A foul vaginal odor? -Difficulty in emotions, mood and functions? -Thoughts of hurting yourself and/or ? -Painful, reddened area in your breast? -Any drainage, redness or tenderness in your IV/epidural site? -Severe headache that doesn't improve after taking medications? -Changes in vision, including temporary loss of vision, blurred vision, and/or light sensitivity? -Upper abdominal pain (usually under ribs on the right side)? -Decrease in urination or painful, frequent urinating? -Chest pain? -Shortness of breath? -Tenderness or pain with redness and/swelling in the calf(s) of your leg? Follow up visits:?? 1. 1 week visit:? incision check.? 2. 2-week visit: discuss feeding/care concerns, review control options and screen for anxiety/depression.? 3. 6-week visit for an annual exam.? ?? consultation services are available to all mothers and babies for the first year after delivery.? To make an appointment, please call [phone].? Discharge Diet: Regular Follow Up Appointments: Provider,Not a Local [Primary Care Provider] - [facility] [Provider Group] Forms: StandDesk Info Instructions
== END 2023-12-31 11:30 | disposition home or self-care (01) | DRG 540 ==
LOC: OB OUT 10:26 → OB 12-29 04:16
PROVIDERS: Admitting Provider Obstetrics & Gynecology; Visit Provider Obstetrics & Gynecology
PROC: 10D00Z1 Extraction of Products of Conception, Low, Open Approach (ICD-10-PCS; CPT 59514; principal; 2023-12-29 04:30)
DX: O62.0 Primary inadequate contractions (principal); O32.2XX0 Maternal care for transverse and oblique lie, not applicable or unspecified; O32.4XX0 Maternal care for high head at term, not applicable or unspecified; G89.18 Other acute postprocedural pain; O99.02 Anemia complicating childbirth; D50.9 Iron deficiency anemia, unspecified; Z3A.39 39 weeks gestation of pregnancy; O62.2 Other uterine inertia; O99.62 Diseases of the digestive system complicating childbirth; K90.0 Celiac disease; Z78.9 Other specified health status; G43.B0 Ophthalmoplegic migraine, not intractable; O35.8XX0 Maternal care for other (suspected) fetal abnormality and damage, not applicable or unspecified; O77.0 Labor and delivery complicated by meconium in amniotic fluid; Z37.0 Single live birth
CPT/HCPCS: 01967; 01968; 36415; 64488; 76942; 85018; 85025; 86592; 86850; 86900; 86901; 99140; G0463; A9270; C9290; J0456; J0665; J0690; J1100; J1885; J2210; J2274; J2371; J2405; J2590; J2795; J3010; J7050; J7120

== ENCOUNTER 2024-08-16 09:23 | Emergency (ER) | payer BC, MEDICAID, SELFPAY ==
[2024-08-16] VITALS (7 sets, daily range): BP systolic 111; BP diastolic 80; PULSE 84–105; RESP 20; TEMP 37.1; O2SAT 98–100; BMI 24.3
--- OUTSIDE RECORDS SUMMARY | 2024-08-16 09:25 | XMS_ITS | Encounter Summary ---
Author Organization [place] Address [address] [place] [address] Care Team Providers Care Racecar Driver Name Role Phone Laila Ross APRN BOX BLANK MACHINE OPERATOR HELPER Primary Care Provider [phone] Laila Ross APRN BOX BLANK MACHINE OPERATOR HELPER Unavailable [phone] Laureen Benz MD Unavailable [phone] Favian Oconnell MD Primary Care Provider [phone] Mally Vidales MD Primary Care Provider [phone] Sandra Stover APRN BOX BLANK MACHINE OPERATOR HELPER Unavaila ble Bishop Hanna MD Unavailable [phone] Bishop Hanna MD Unavailable [phone] Nancy Huynh PA-C Unavailable [phone] Mally Vidales MD Unavailable [phone] Nancy HuynhC Unavailable [phone] Nancy Huynh PA-C Unavailable [phone] Encounter Details Date Type Department Care Team (Late st Contact Info) Description 07/24/2022 [facility] [address] [place] [address] Bishop Hanna MD [address] [place] [address] [id number] [address] Social History Tobacco Use Types Packs/Day Years Used Date Smoking Tobacco: Never Smokeless Tobacco: Never Alcohol Use Standard Drinks/Week Comments Not Currently 0 (1 standard drink = 0.6 oz pur e alcohol) PHQ-2 Answer Date Recorded PHQ-2 Score 0 05/10/2022 Comments No Sex and Gender Information Value Date Recorded Sex Assigned at Not on file Legal Sex Female 5:25 PM MANAGER WIRELESS Gender Identity Not on file Sexual Orientation Not on file COVID-19 Exposure Response Date Recorded In the last 10 days, have yo u been in contact with someone who was confirmed or suspected to have Coronavirus/COVID-19? No / Unsure 07/24/2022 2:35 PM CDT documented as of this encounter Plan of Treatment Not on file documented as of this encounter Visit Diagnoses Not on filedocumented in this encounter Care Teams Racecar Driver Relationship Specialty Start Date End Date Laila Ross APRN BOX BLANK MACHINE OPERATOR HELPER [address] [place] [address] PCP - General Internal Medicine 05/01/22 08/02/22 [place] [address] [place] [address]642 PCP - General Family Medicine 08/03/22 08/08/22 Mally Vidales MD [address] [facility] [place] [address] PCP - General Internal Medicine - Pediatrics 08/09/22 Laila Ross APRN BOX BLANK MACHINE OPERATOR HELPER [address] [place] [address] Assigned PCP 04/05/22 11/24/22 Laureen Benz MD [address] [id number] [place], [place] [address] Assigned Neuroscience Provider 06/17/22 08/04/22 Sandra Stover APRN BOX BLANK MACHINE OPERATOR HELPER [address] [address] Assigned Neuroscience Provider 08/12/22 08/18/22 Bishop Hanna MD [address] [address] Assigned Neuroscience Provider 08/05/22 08/11/22 Bishop Hanna MD [address] [address] Assigned Neuroscience Provider 08/19/22 02/05/24 Nancy Huynh PA-C [address] [facility] 98 [place] [address] Physician Siebel Architect Dermatology 09/13/22 Mally Vidales MD [address] [facility] [place] [address] Assigned PCP 11/25/22 Nancy Huynh PA-C [address] [place] [address] Assigned Surgical Provider 03/24/23 07/05/24 Nancy Huynh PA-C [address] [place] [address] Assigned Dermatology Provider 07/06/24 documented as of this encounter
--- OUTSIDE RECORDS SUMMARY | 2024-08-16 09:25 | XMS_ITS | Encounter Summary ---
Author Organization [place] Address [address] [place] [address] Care Team Providers Care Radiographer Technologist Name Role Phone Laila Ross APRN CAMP DINING ROOM ATTENDANT Unavailable [phone] Mally Vidales MD Primary Care Provider [phone] Bishop Hanna MD Unavailable [phone] Nancy Huynh PA-C Unavailable [phone] Mally Vidales MD Unavailable [phone] Nancy Huynh PA-C Unavailable [phone] Nancy Huynh PA-C Unavailable [phone] Reason for Visit * Reason Onset Date Comments Medication Question 09/13/2022 Ok to take m agnesium? Encounter Details Date Type Department Care Team (Late st Contact Info) Description 09/13/2022 MyC Medical Advice [facility] Karol [address] [place] [address] Drive [address] [place] [address] Mally Vidales MD [address] [place] [address] [place]RAF [address] Medication Question (Ok to take magnesium?) Social History Tobacco Use Types Packs/Day Years Used Date Smoking Tobacco: Never Smokeless Tobacco: Never Alcohol Use Standard Drinks/Week Comments Not Currently 0 (1 standard drink = 0.6 oz pur e alcohol) PHQ-2 Answer Date Recorded PHQ-2 Score 2 08/01/2022 Comments No Sex and Gender Information Value Date Recorded Sex Assigned at Not on file Legal Sex Female 5:25 PM AGENCY RECRUITER Gender Identity Not on file Sexual Orientation Not on file COVID-19 Exposure Response Date Recorded In the last 10 days, have yo u been in contact with someone who was confirmed or suspected to have Coronavirus/COVID-19? Unable to assess 09/13/2022 10:22 AM CDT documented as of this encounter Plan of Treatment Not on file documented as of this encounter Visit Diagnoses Not on filedocumented in this encounter Care Teams Radiographer Technologist Relationship Specialty Start Date End Date Mally Vidales MD [address] [facility] [place] [address] PCP - General Internal Medicine - Pediatrics 08/09/22 Laila Ross APRN CAMP DINING ROOM ATTENDANT [address] [place] [address] Assigned PCP 04/05/22 11/24/22 Bishop Hanna MD [address] [facility] [id number] [place] [address] Assigned Neuroscience Provider 08/19/22 02/05/24 Nancy Huynh PA-C [address] [facility] 98 [place] [address] Physician Mechanical Unit Repairer Dermatology 09/13/22 Mally Vidales MD [address] [facility] [place] [address] Assigned PCP 11/25/22 Nancy Huynh PA-C [address] [place] [address] Assigned Surgical Provider 03/24/23 07/05/24 Nancy Huynh PA-C [address] [place] [address] [id number] Assigned Dermatology Provider 07/06/24 documented as of this encounter
--- OUTSIDE RECORDS SUMMARY | 2024-08-16 09:25 | XMS_ITS | Encounter Summary ---
Author Organization [place] Address [address] [place] [address] Care Team Providers Care Rework Operator Name Role Phone Mally Vidales MD Primary Care Provider [phone] Nancy Huynh PA-C Unavailable [phone] Mally Vidales MD Unavailable [phone] Nancy Huynh PA-C Unavailable [phone] Encounter Details Date Type Department Care Team (Late st Contact Info) Description 07/15/2024 MyC Medical Advice [address] [address] Nancy Huynh PA-C [address] [place] [id number] Social History Tobacco Use Types Packs/Day Years Used Date Smoking Tobacco: Never Smokeless Tobacco: Never Alcohol Use Standard Drinks/Week Comments Not Currently 0 (1 standard drink = 0.6 oz pur e alcohol) PHQ-2 Answer Date Recorded PHQ-2 Score 0 05/19/2024 Adolescent Education Answer Date Record ed Getting School Help Needed Not on file 01/05 Comments Unknown Sex and Gender Information Value Date Recorded Sex Assigned at Not on file Legal Sex Female 5:25 PM THERAPEUTIC RECREATION ASSISTANT Gender Identity Not on file Sexual Orientation Not on file documented as of this encounter Plan of Treatment Not on file documented as of this encounter Visit Diagnoses Not on filedocumented in this encounter Care Teams Rework Operator Relationship Specialty Start Date End Date Mally Vidales MD [address] [facility] [place] [address] PCP - General Internal Medicine - Pediatrics 08/09/22 Nancy Huynh PA-C [address] [place] [address] Physician E Mail System Administrator Dermatology 09/13/22 Mally Vidales MD [address] [facility] [place] [address] Assigned PCP 11/25/22 Nancy Huynh PA-C [address] [place] [address] Assigned Dermatology Provider 07/06/24 documented as of this encounter
--- OUTSIDE RECORDS SUMMARY | 2024-08-16 09:25 | XMS_ITS | Clinical Summary ---
Author Organization [place] Address [address] [place] [address] Care Team Providers Care Practice Support Specialist Name Role Phone Mally Vidales MD Primary Care Provider [phone] Nancy Huynh PA-C Unavailable [phone] Mally Vidales MD Unavailable [phone] Nancy Huynh PA-C Unavailable [phone] Allergies Active Allergy Reactions Criticality Noted Date Comments Aspirin Swelling 08/31/2022 Patient reports swelling of tongue Penicillins Rash,Itching Low 10/18/2012 Other reaction(s): *Unknown - Childhood Rxn Ranitidine Hives 03/11/2018 Sulfa Antibiotics Rash,Swelling Low 11/05/2012 Medications fluticasone (FLONASE) 50 MCG/ACT nasal sprayIndication s:Congestion of paranasal sinus Lithia 1 spray into both nostrils daily 16 g Active Additional Information Patient not taking.Reported on 06/26/2023 imiquimod (ALDARA) 5 % external creamIndication s:Plantar wart of both feet Apply a small sized amount to warts or molluscum three times weekly at bedtime. Wash off after 8 hours. May use for up to 16 weeks. 12 packet 3 5 Active Additional Information Patient not taking.Reported on 07/01/2024 adapalene (DIFFERIN) 0.1 % external gelIndications: Acne vulgaris Apply topically at bedtime. To acne prone areas 45 g 11 5 Active Additional Information Patient not taking.Reported on 07/01/2024 metroNIDAZOLE (METROGEL) 0.75 % external gelIndications: Periorificial dermatitis Apply topically 2 times daily. 45 g 2 5 Active doxycycline hyclate (VIBRAMYCIN) 100 MG capsuleIndicati ons:Periorifici al dermatitis Take 1 capsule (100 mg) by mouth 2 times daily. Not safe in or . 60 capsule 5 08/18/19 Active Active Problems Problem Noted Date Diagnosed Date Generalized anxiety disorder 02/14/2018 Celiac sprue 06/01/2017 08/03/2022 Overview (08/03/2022): confirmed on EGD; diarrhea and positive tissue transglutaminase antibodies Encounters Date Type Department Care Team Description 07/18/2024 Orders Only [facility] Dermatology [address] [phone] Marcela Faust PA-C Periorificial dermatitis (Primary Dx) 07/15/2024 MyC Medical Advice [address] [phone] Nancy Huynh PA-C 07/01/2024 1:45 PM CDT Office Visit [address] [phone] Nancy Huynh PA-C Periorificial dermatitis (Primary Dx); Acne vulgaris 07/01/2024 Travel 06/30/2024 Travel 06/23/2024 MyC Medical Advice [facility] Dermatology [address] [address] Nancy Huynh PA-C MyChart Communication 05/19/2024 9:30 AM ASSISTANT SUPERINTENDENT FOR CURRICULUM Office Visit [facility] Dermatology [address] [address] Nancy Ceja PA-C Skin cancer screening (Primary Dx); Acne vulgaris; Sethi angioma; Multiple pigmented nevi; Plantar wart of both feet from Last 3 Months Immunizations Name Administration Dates Next Due COVID-19 MONOVALENT 12+ (Pfizer) 03/09/2021,2 06/2020,07/16/2020 DTAP (<7y) 08/23/1999 DTP-Hib 01/18/1996, 5,1994,07/14 Flu, Unspecified 01/30/2009 HPV Quadrivalent 11/15/2007,12/26/2006, 7 Hepatitis A (VAQTA)(ADULT 19+) 04/13/2016,2015 Hepatitis B, Peds (Engerix-B/Recombivax HB) 03/07/1995,1994,1994 Influenza (IIV3) PF 04/13/2016 Influenza (prior to 2023) 01/19/2017 Influenza Intranasal Vaccine 01/30/2009 Influenza Vaccine >6 months,quad, PF ,01/30/2020,02/12/2018,04/13 Influenza Vaccine, 6+MO IM (QUADRIVALENT W/PRESERVATIVES) 02/19/2019,02/07/2015 Influenza,INJ,MDCK,PF,Quad >6mo(Flucelvax) 03/01/2022 MMR (MMRII) 08/22/2009,08/23/1999,08/22/1995 Mantoux Tuberculin Skin Test 09/18/2016 Meningococcal ACWY (Menactra ) 10/03/2006,11/06/1999 Meningococcal ACWY (Menveo ) 11/05/2012,10/03/2006,11/06/1999 Nasal Influenza Vaccine 2-49 (FluMist) 4,01/17/2013 OPV, trivalent, live 08/23/1999,01/17/19 96,1994,07/14 TDAP (Adacel,Boostrix) 05/30/2019,01/14/2010 Td (Adult), Adsorbed 09/19/2004 Family History Medical History Relation Comments Hypertension Father Skin Cancer Father Diabetes Mother Skin Cancer Mother Relation Status Comments Father Mother Alive Social History Tobacco Use Types Packs/Day Years Used Date Smoking Tobacco: Never Smokeless Tobacco: Never Tobacco Cessation:Counseling Given: Not Answered Alcohol Use Standard Drinks/Week Comments Not Currently 0 (1 standard drink = 0.6 oz pur e alcohol) PHQ-2 Answer Date Recorded PHQ-2 Score 0 05/19/2024 Adolescent Education Answer Date Record ed Getting School Help Needed Not on file 01/05 Comments Unknown Sex and Gender Information Value Date Recorded Sex Assigned at Not on file Legal Sex Female 5:25 PM ASSISTANT SUPERINTENDENT FOR CURRICULUM Gender Identity Not on file Sexual Orientation Not on file Last Filed Vital Signs Vital Sign Reading Time Taken Comments Blood Pressure 110/76 06/26/2023 10:15 AM CDT Pulse 87 06/26/2023 10:15 AM CDT Temperature 36.3 C (97.4 F) 03/01/2023 10:29 AM ASSISTANT SUPERINTENDENT FOR CURRICULUM Respiratory Rate 20 06/26/2023 10:15 AM CDT Oxygen Saturation 100% 06/26/2023 10:15 AM CDT Inhaled Oxygen Concentration - - Weight 60.8 kg (134 lb) 11/16/2022 9:21 AM CDT Height 165.1 cm (5' 5) 11/16/2022 9:21 AM CDT Body Mass Index 22.3 11/16/2022 9:21 AM CDT Plan of Treatment Health Maintenance Due Date Last Done Comments YEARLY PREVENTIVE VISIT 04/11/2023 04/11/20, 10/29/2020, 05/30/2019, Additional history exists ANNUAL REVIEW OF HM ORDERS 05/01/2023 05/01/2022 INFLUENZA VACCINE (#1) 2023 , 03/01/2022, 03/01/2021, Additional history exists PAP 04/11/2025 04/11/2022 DTAP/TDAP/TD IMMUNIZATION (9 - Td or Tdap) 10/25/2033 10/26/2023, 05/30/2019, 01/14/2010, Additional history exists ADVANCE CARE PLANNING 08/03/2042 Postpo efe from 1994 (Patient Declined) ZOSTER IMMUNIZATION (1 of 2) 2044 HEPATITIS B IMMUNIZATION Completed 995, 1994, 1994 HPV IMMUNIZATION Completed 11/15/2007, 03/2007, 10/03/2006 MENINGITIS IMMUNIZATION Completed 11/06/19 13, 10/03/2006, 10/03/2006, Additional history exists COVID-19 Vaccine Discontinued 03/09/2021, , 07/16/2020 PHQ-2 (once per calendar year) Completed 05/19/2024, 08/01/2022, 05/10/2022, Additional history exists HEPATITIS C SCREENING Discontinued HIV SCREENING Discontinued Pneumococcal Vaccine: Pediatrics (0 to 5 Years) and At-Risk Patients (6 to 49 Years) Aged Out No longer eligible based on patient's age to complete this topic Insurance [facility] Address: [address] [address] [facility] Address: [facility] [address] [place] [address] Care Teams Practice Support Specialist Relationship Specialty Start Date End Date Mally Vidales MD [address] [facility] [place]RAF [address] PCP - General Internal Medicine - Pediatrics 08/09/22 Nancy Huynh PA-C [address] [place] [address] Physician Billing Representative Dermatology 09/13/22 Mally Vidales MD [address] [facility] [place] [address] Assigned PCP 11/25/22 Nancy Huynh PA-C [address] [place] [address] Assigned Dermatology Provider 07/06/24
--- OUTSIDE RECORDS SUMMARY | 2024-08-16 09:25 | XMS_ITS | Encounter Summary ---
Author Organization [facility] Address [address] [place] [address] Care Team Providers Care Dining Service Worker Name Role Phone Mally Vidales MD Primary Care Provider [phone] Nancy Huynh PA-C Unavailable [phone] Mally Vidales MD Unavailable [phone] Nancy Huynh PA-C Unavailable [phone] Encounter Details Date Type Department Care Team (Late st Contact Info) Description 07/18/2024 Orders Only [facility] [address] 3[address] [place] [address] Marcela Faust PA-C Dermatology [address] [place] [phone] Periorificial dermatitis (Primary Dx) Social History Tobacco Use Types Packs/Day Years [...] on file Legal Sex Female 5:25 PM CHECK WRITER Gender Identity Not on file Sexual Orientation Not on file documented as of this encounter Plan of Treatment Not on file documented as of this encounter Visit Diagnoses Diagnosis Periorificial dermatitis- Primary documented in this encounter Care Teams Dining Service Worker Relationship Specialty Start Date End Date Mally Vidales MD [address] [facility] [place]RAF [address] PCP - General Internal Medicine - Pediatrics 08/09/22 Nancy Huynh PA-C [address] [place] [address] Physician Conditioner Tender Dermatology 09/13/22 Mally Vidales MD [address] [facility] [place]RAF [address] Assigned PCP 11/25/22 Nancy Huynh PA-C [address] [place] [address] Assigned Dermatology Provider 07/06/24 documented as of this encounter
--- OUTSIDE RECORDS SUMMARY | 2024-08-16 09:26 | XMS_ITS | Encounter Summary ---
Author Organization [facility] Address [address] [place] [address] Care Team Providers Care Gas Usage Meter Clerk Name Role Phone Mally Vidales MD Primary Care Provider [phone] Bishop Hanna MD Unavailable [phone] Nancy Hyunh PA-C Unavailable [phone] Mally Vidales MD Unavailable [phone] Nancy Huynh PA-C Unavailable [phone] Nancy Huynh PA-C Unavailable [phone] Reason for Visit * Reason Onset Date Comments Patient/info Update 01/06/2023 Encounter Details Date Type Department Care Team (Late st Contact Info) Description 01/06/2023 MyC Medical Advice [facility] Karol [address] [facility] [address] [place] [address] Mally Vidales MD [address] [place] [address] YASHIRA ASHRAF [address] Patient/info Update Social History Tobacco Use Types Packs/Day Years Used Date Smoking Tobacco: Never Smokeless Tobacco: Never Alcohol Use Standard Drinks/Week Comments Not Currently 0 (1 standard drink = 0.6 oz pur e alcohol) PHQ-2 Answer Date Recorded PHQ-2 Score 2 08/01/2022 Adolescent Education Answer Date Record ed Getting School Help Needed Not on file 01/05 Comments No Sex and Gender Information Value Date Recorded Sex Assigned at Not on file Legal Sex Female 5:25 PM DIE BARBER Gender Identity Not on file Sexual Orientation Not on file documented as of this encounter Miscellaneous Notes * Telephone Encounter - Calixto Slaughter RN - 01/08/2023 7:23 AM CDT Recommend scheduling with WAREHOUSE LABORER or visit with you? Calixto Chau RN 01/08/2023 at 7:24 AM documented in this encounter Plan of Treatment Not on file documented as of this encounter Visit Diagnoses Not on filedocumented in this encounter Care Teams Gas Usage Meter Clerk Relationship Specialty Start Date End Date Mally Vidales MD [address] [place] [address] YASHIRA ASHRAF [address] PCP - General Internal Medicine - Pediatrics 08/09/22 Bishop Hanna MD [address]09 [facility] [place] [address] Assigned Neuroscience Provider 08/19/22 02/05/24 Nancy Huynh PA-C 420 [facility] [address] [place] [address] Physician Mold Preparer Dermatology 09/13/22 Mally Vidales MD [address] [place] [address] [place]ASHRI[place] ASHRAF [address] Assigned PCP 11/25/22 Nancy Huynh PA-C [address] [place] [address] Assigned Surgical Provider 03/24/23 07/05/24 Nancy Huynh PA-C [address] [place] [address] Assigned Dermatology Provider 07/06/24 documented as of this encounter
--- OUTSIDE RECORDS SUMMARY | 2024-08-16 09:26 | XMS_ITS | Encounter Summary ---
Author Organization [facility] Address [address] [place] [address] Care Team Providers Care Teasel Gig Operator Name Role Phone Laila Ross APRN PERSONAL CARE WORKER Primary Care Provider [phone] Laila Ross APRN PERSONAL CARE WORKER Unavailable [phone] Laureen Benz MD Unavailable [phone] Favian Oconnell MD Primary Care Provider [phone] Mally Vidales MD Primary Care Provider [phone] Sandra Stover APRN PERSONAL CARE WORKER Unavaila ble Bishop Hanna MD Unavailable [phone] Bishop Hanna MD Unavailable [phone] Nancy HuynhC Unavailable [phone] Mally Vidales MD Unavailable [phone] Nancy Huynh-C Unavailable [phone] Nancy Huynh-C Unavailable [phone] Reason for Visit * Reason Onset Date Comments Appointment 07/15/2022 Encounter Details Date Type Department Care Team (Late st Contact Info) Description 07/15/2022 MyC Medical Advice [facility] [address] [place] [address] Laila Ross APRN PERSONAL CARE WORKER [address] [place] [address] Appointment Social History Tobacco Use Types Packs/Day Years Used Date Smoking Tobacco: Never Smokeless Tobacco: Never Alcohol Use Standard Drinks/Week Comments Not Currently 0 (1 standard drink = 0.6 oz pur e alcohol) PHQ-2 Answer Date Recorded PHQ-2 Score 0 05/10/2022 Comments No Sex and Gender Information Value Date Recorded Sex Assigned at Not on file Legal Sex Female 5:25 PM TRANSFORMER MOLDER Gender Identity Not on file Sexual Orientation Not on file COVID-19 Exposure Response Date Recorded In the last 10 days, have yo u been in contact with someone who was confirmed or suspected to have Coronavirus/COVID-19? No / Unsure 07/18/2022 2:00 PM CDT documented as of this encounter Miscellaneous Notes * Telephone Encounter - Dolores Rivera RN - 07/18/2022 11:48 AM CDT Sent message back. * Telephone Encounter - Laila Ross APRN CNP - 07/17/2022 4:35 PM CDT Next available is okay! Virtual is just fine :) * Telephone Encounter - Dolores Rivera RN - 07/17/2022 4:33 PM CDT See mychart message. Is it OK for Virtual Visit or OV? Next avail OK? documented in this encounter Plan of Treatment Not on file documented as of this encounter Visit Diagnoses Not on filedocumented in this encounter Care Teams Teasel Gig Operator Relationship Specialty Start Date End Date Laila Ross APRN PERSONAL CARE WORKER [address] [place] [address] PCP - General Internal Medicine 05/01/22 08/02/22 Favian Oconnell MD [address] [place] [address] PCP - General Family Medicine 08/03/22 08/08/22 Mally Vidales MD [address] [facility] [place] [address] PCP - General Internal Medicine - Pediatrics 08/09/22 Laila Ross, ADVERTISING SALES AGENT PERSONAL CARE WORKER [address] [place] [address] Assigned PCP 04/05/22 11/24/22 Laureen Benz MD [address] [place] [address] Assigned Neuroscience Provider 06/17/22 08/04/22 Sandra Stover APRN PERSONAL CARE WORKER [address] [place] [address] Assigned Neuroscience Provider 08/12/22 08/18/22 Bishop Hanna MD [address] [place] [address] Assigned Neuroscience Provider 08/05/22 08/11/22 Bishop Hanna MD [address] [place] [address] Assigned Neuroscience Provider 08/19/22 02/05/24 Nancy Huynh PA-C 420 [facility] 98 [place] [address] Physician Consulting Psychologist Dermatology 09/13/22 Mally Vidales MD [address] [facility] YASHIR[place] ASHRAF [address] Assigned PCP 11/25/22 Nancy Huynh PA-C [address] [place] [address] Assigned Surgical Provider 03/24/23 07/05/24 Nancy Huynh PA-C [address] [place] [address] Assigned Dermatology Provider 07/06/24 documented as of this encounter
--- OUTSIDE RECORDS SUMMARY | 2024-08-16 09:26 | XMS_ITS | Encounter Summary ---
Author Organization [facility] Address [address] [place] [address] Care Team Providers Care Station Agent Name Role Phone Laila Ross APRN WHEEL ALIGNMENT TECHNICIAN Primary Care Provider [phone] Sandra Stover APRN WHEEL ALIGNMENT TECHNICIAN Unavaila ble Laila Ross APRN WHEEL ALIGNMENT TECHNICIAN Unavailable [phone] Bishop Hanna MD Unavailable [phone] Laureen Benz MD Unavailable [phone] Favian Oconnell MD Primary Care Provider [phone] Mally Vidales MD Primary Care Provider [phone] Sandra Stover APRN WHEEL ALIGNMENT TECHNICIAN Unavaila ble Bishop Hanna MD Unavailable [phone] Bishop Hanna MD Unavailable [phone] Nancy Huynh PA-C Unavailable [phone] Mally Vidales MD Unavailable [phone] Nancy Huynh PA-C Unavailable [phone] Nancy Huynh PA-C Unavailable [phone] Reason for Visit * Reason Onset Date Comments Results 05/02/2022 MRI Encounter Details Date Type Department Care Team (Late st Contact Info) Description 05/02/2022 MyC Medical Advice [facility] 1st Floor, Clinic [address] [place] [address] Sandra Stover APRN CNP [address] [facility] [id number] [place] [address] Results (MRI ) Social History Tobacco Use Types Packs/Day Years Used Date Smoking Tobacco: Never Smokeless Tobacco: Never Alcohol Use Standard Drinks/Week Comments Not Currently 0 (1 standard drink = 0.6 oz pur e alcohol) PHQ-2 Answer Date Recorded PHQ-2 Score 0 05/01/2022 Comments Unknown Sex and Gender Information Value Date Recorded Sex Assigned at Not on file Legal Sex Female 5:25 PM CARDIOPULMONARY SPECIALIST Gender Identity Not on file Sexual Orientation Not on file COVID-19 Exposure Response Date Recorded In the last 10 days, have yo u been in contact with someone who was confirmed or suspected to have Coronavirus/COVID-19? No / Unsure 05/02/2022 5:19 PM CARDIOPULMONARY SPECIALIST documented as of this encounter Miscellaneous Notes * Telephone Encounter - Dolores Rivera RN - 05/03/2022 1:44 PM CARDIOPULMONARY SPECIALIST See her new message. IOPULMONARY SPECIALIST * Telephone Encounter - Dolores Rivera RN - 05/03/2022 10:18 AM CARDIOPULMONARY SPECIALIST Will route this [employer] message to her Neurology provider who ordered the MRI, Sandra Stover APRN CNP. Also sent message back regarding her Telephone enc asking if should stay on the aspirin. Per Cody Ulloa Lisa R, APRN CNP Note I would continue to take this until she sees Neurosurgery next week. They will have final input on this. IOPULMONARY SPECIALIST documented in this encounter Plan of Treatment Not on file documented as of this encounter Visit Diagnoses Not on filedocumented in this encounter Care Teams Station Agent Relationship Specialty Start Date End Date Laila Ross APRN CNP [address] [place] [address] PCP - General Internal Medicine 05/01/22 08/02/22 Favian Oconnell MD [address] [place], [place] 3697[address] PCP - General Family Medicine 08/03/22 08/08/22 Mally Vidales MD [address] [facility] [place] [address] PCP - General Internal Medicine - Pediatrics 08/09/22 Sandra Stover APRN WHEEL ALIGNMENT TECHNICIAN [address] [place] [address] 250435 Assigned Neuroscience Provider 04/29/22 05/12/22 Laila Ross APRN WHEEL ALIGNMENT TECHNICIAN [address] [place] [address] Assigned PCP 04/05/22 11/24/22 Bishop Hanna MD [address] [place] [address] 397275 Assigned Neuroscience Provider 05/13/22 06/16/22 Laureen Benz MD [address] [place] [address] 000665 Assigned Neuroscience Provider 06/17/22 08/04/22 Sandra Stover APRN WHEEL ALIGNMENT TECHNICIAN [address] [place] [address] Assigned Neuroscience Provider 08/12/22 08/18/22 Bishop Hanna MD [address] [place] [place] [address] Assigned Neuroscience Provider 08/05/22 08/11/22 Bishop Hanna MD [address] [address] Assigned Neuroscience Provider 08/19/22 02/05/24 Nancy Huynh PA-C [address] [place] [address] 98 [place] [address] Physician Emergency Medical Technician Dermatology 09/13/22 Mally Vidales MD [address] [facility] [place] [address] Assigned PCP 11/25/22 Nancy Huynh PA-C [address] [place] [address] Assigned Surgical Provider 03/24/23 07/05/24 Nancy Huynh PA-C [address] [place] [address] Assigned Dermatology Provider 07/06/24 documented as of this encounter
--- OUTSIDE RECORDS SUMMARY | 2024-08-16 09:26 | XMS_ITS | Encounter Summary ---
Author Organization [facility] Address [address] [place] [address] Care Team Providers Care Tower Erector Helper Name Role Phone No Ref-Primary, Physician Primary Care Provider Laila Ross APRN HOG PUSHER Primary Care Provider [phone] Sandra Stover APRN HOG PUSHER Unavaila ble Laila Ross APRN HOG PUSHER Unavailable [phone] Bishop Hanna MD Unavailable [phone] Laureen Benz MD Unavailable [phone] Favian Oconnell MD Primary Care Provider [phone] Mally Vidales MD Primary Care Provider [phone] Sandra Stover APRN HOG PUSHER Unavaila ble Bishop Hanna MD Unavailable [phone] Bishop Hanna MD Unavailable [phone] Nancy Huynh PA-C Unavailable [phone] Mally Vidales MD Unavailable [phone] Nancy Huynh PA-C Unavailable [phone] Nancy Huynh PA-C Unavailable [phone] Encounter Details Date Type Department Care Team (Late st Contact Info) Description 04/28/2022 [facility] Neurology Clinic [address] [phone] Sandra Stover APRN HOG PUSHER [address] [place] [address] 532265 Social History Tobacco Use Types Packs/Day Years Used Date Smoking Tobacco: Never Smokeless Tobacco: Never PHQ-2 Answer Date Recorded PHQ-2 Score 0 05/01/2022 Comments Unknown Sex and Gender Information Value Date Recorded Sex Assigned at Not on file Legal Sex Female 5:25 PM FRONT TENDER Gender Identity Not on file Sexual Orientation Not on file COVID-19 Exposure Response Date Recorded In the last 10 days, have yo u been in contact with someone who was confirmed or suspected to have Coronavirus/COVID-19? No / Unsure 05/01/2022 12:57 PM FRONT TENDER documented as of this encounter Plan of Treatment Not on file documented as of this encounter Visit Diagnoses Not on filedocumented in this encounter Care Teams Tower Erector Helper Relationship Specialty Start Date End Date No Ref-Primary, Physician PCP - General 04/16/22 04/30/22 Laila Ross APRN HOG [place]US[place] [address] PCP - General Internal Medicine 05/01/22 08/02/22 Favian Oconnell MD [address] [place] [address] 265992 PCP - General Family Medicine 08/03/22 08/08/22 Mally Vidales MD [address] [place] [address] YASHIRA ASHRAF [address] PCP - General Internal Medicine - Pediatrics 08/09/22 Sandra Stover APRN HOG PUSHER [address] [place] [address] Assigned Neuroscience Provider 04/29/22 05/12/22 Laila Ross RADIOGRAPHER CARDIAC CATHETERIZATION HOG PUSHER [address] [place] [address] Assigned PCP 04/05/22 11/24/22 Bishop Hanna MD [address] [place] [address] Assigned Neuroscience Provider 05/13/22 06/16/22 Laureen Benz MD [address] [place] [address] Assigned Neuroscience Provider 06/17/22 08/04/22 Sandra Stover APRN HOG PUSHER [address] [place] [address] 882145 Assigned Neuroscience Provider 08/12/22 08/18/22 Bishop Hanna MD [address] [place] [address] Assigned Neuroscience Provider 08/05/22 08/11/22 Bishop Hanna MD [address] [place] [address] 274265 Assigned Neuroscience Provider 08/19/22 02/05/24 Nancy Huynh PA-C [address] [place] [address] 630405 Physician Accounts Payable Processor Dermatology 09/13/22 Mally Vidales MD [address] [facility] YASHIRA ASHRAF [address] Assigned PCP 11/25/22 Nancy Huynh PA-C [address] [place] [address] Assigned Surgical Provider 03/24/23 07/05/24 Nancy Huynh PA-C [address] [place] [address] Assigned Dermatology Provider 07/06/24 documented as of this encounter
--- OUTSIDE RECORDS SUMMARY | 2024-08-16 09:26 | XMS_ITS | Clinical Summary ---
Author Organization [facility] Address [address] [place] [address] Care Team Providers Care Pathology Laboratory Technologist Name Role Phone Pcp, No Primary Care Provider Marlene Chan MD Unavailable Allergies Active Allergy Reactions Criticality Noted Date Comments Penicillins *Unknown - Childhood Rxn 02/25/2020 Penicillins Rash Low 10/18/2012 Other reaction(s): *Unknown - Childhood Rxn Ranitidine Hives 03/11/2018 Sulfa (Sulfonamide Antibiotics) Rash 02/25/2020 Sulfa (Sulfonamide Antibiotics) Rash,Edema Low 11/05/2012 Medications desogestrel-ethi nyl estradiol 0.15-30 mg-mcg (ENSKYCE) tablet TAKE 1 TABLET DAILY 10/02/2019 Active aspirin (ECOTRIN) 81 mg enteric coated tablet Take 81 mg by mouth. Active Family History Relation Name Status Comments Father Alive Mother Alive Social History Tobacco Use Types Packs/Day Years Used Date Smoking Tobacco: Never Passive Smoke Exposure: Never Smokeless Tobacco: Never Tobacco Cessation:Counseling Given: Not Answered Alcohol Use Standard Drinks/Week Comments Never 0 (1 standard drink = 0.6 oz pur e alcohol) Social Connections Answer Date Recorded Frequency of Communication with Friends and Fami ly Not on file 10/29/2023 Comments No Sex and Gender Information Value Date Recorded Sex Assigned at Not on file Legal Sex Female 7:14 PM AIX ADMINISTRATOR Gender Identity Not on file Sexual Orientation Not on file Obstetrics History Last Filed Vital Signs Vital Sign Reading Time Taken Comments Blood Pressure 117/70 07/09/2022 4:47 PM CDT Pulse 83 07/09/2022 4:47 PM CDT Temperature 36.3 C (97.3 F) 07/09/2022 4:47 PM CDT Respiratory Rate 22 07/09/2022 4:47 PM CDT Oxygen Saturation 100% 07/09/2022 4:47 PM CDT Inhaled Oxygen Concentration - - Weight 56.7 kg (125 lb) 07/09/2022 4:47 PM CDT Height 165.1 cm (5' 5) 07/09/2022 4:47 PM CDT Body Mass Index 20.8 07/09/2022 4:47 PM CDT Plan of Treatment Health Maintenance Due Date Last Done Comments Tdap 2005 Depression screening for age 12+ 2006 HIV for age 15-65 2009 Hepatitis C screening for ag e 18-79 2012 Tetanus booster 2014 Pap test for age 21-65 2015 BMI (ht and wt on same day) for age 18+ 07/10/2023 07/09/2022 COVID-19 vaccine series (2023- season) 2023 03/09/2021 Influenza Vaccine (Season Ended) 2024 Pneumococcal series for age 6-49 Aged Out No longer eligible based on patient's age to complete this topic Insurance [facility] NON-[place] [address] BLUE CR[place] Care Teams Pathology Laboratory Technologist Relationship Specialty Start Date End Date Pcp, No . PCP - General 07/09/22 Marlene Strickland MD [address] [place] [address] Family Practice 07/09/22
--- OUTSIDE RECORDS SUMMARY | 2024-08-16 09:26 | XMS_ITS | Encounter Summary ---
Author Organization [facility] Address [address] [place] [address] Care Team Providers Care Surveying Crew Stake Runner Name Role Phone Laila Ross APRN DATAWAREHOUSE DEVELOPER Primary Care Provider [phone] Sandra Stover APRN DATAWAREHOUSE DEVELOPER Unavaila ble Laila Ross APRN DATAWAREHOUSE DEVELOPER Unavailable [phone] Bishop Hanna MD Unavailable [phone] Laureen Benz MD Unavailable [phone] Favian Oconnell MD Primary Care Provider [phone] Mally Vidales MD Primary Care Provider [phone] Sandra Stover APRN DATAWAREHOUSE DEVELOPER Unavaila ble Bishop Hanna MD Unavailable [phone] Bishop Hanna MD Unavailable [phone] Nancy Huynh PA-C Unavailable [phone] Mally Vidales MD Unavailable [phone] Nancy Huynh PA-C Unavailable [phone] Nancy Huynh PA-C Unavailable [phone] Encounter Details Date Type Department Care Team (Late st Contact Info) Description 05/10/2022 [facility] Neurosurgery [address] [place] [address] Bishop Hanna MD [address] [facility] [id number] [place], [place] 218175 Social History Tobacco Use Types Packs/Day Years Used Date Smoking Tobacco: Never Smokeless Tobacco: Never Alcohol Use Standard Drinks/Week Comments Not Currently 0 (1 standard drink = 0.6 oz pur e alcohol) PHQ-2 Answer Date Recorded PHQ-2 Score 0 05/10/2022 Comments Unknown Sex and Gender Information Value Date Recorded Sex Assigned at Not on file Legal Sex Female 5:25 PM TALK SHOW HOST Gender Identity Not on file Sexual Orientation Not on file COVID-19 Exposure Response Date Recorded In the last 10 days, have yo u been in contact with someone who was confirmed or suspected to have Coronavirus/COVID-19? No / Unsure 05/02/2022 5:19 PM TALK SHOW HOST documented as of this encounter Miscellaneous Notes * Telephone Encounter - Tori Ocampo LPN - 05/10/2022 10:26 AM TALK SHOW HOST Attn: Stroke/Neurovascular Nurse Pool Eboni Ocampo LPN Neurosurgery SHOW HOST documented in this encounter Plan of Treatment Not on file documented as of this encounter Visit Diagnoses Not on filedocumented in this encounter Care Teams Surveying Crew Stake Runner Relationship Specialty Start Date End Date Laila Ross, BRASS WIND INSTRUMENT MAKER DATAWAREHOUSE DEVELOPER [address] [place] [address] PCP - General Internal Medicine 05/01/22 08/02/22 [place] [address] [place] [address] [id number] PCP - General Family Medicine 08/03/22 08/08/22 Mally Vidales MD [address] [facility] YASHIRA ASHRAF [address] PCP - General Internal Medicine - Pediatrics 08/09/22 Sandra Stover APRN DATAWAREHOUSE DEVELOPER [address] [place] [address] Assigned Neuroscience Provider 04/29/22 05/12/22 Laila Ross, BRASS WIND INSTRUMENT MAKER DATAWAREHOUSE DEVELOPER [address] [place] [address] Assigned PCP 04/05/22 11/24/22 Bishop Hanna MD [address] [place] [address] Assigned Neuroscience Provider 05/13/22 06/16/22 Laureen Benz MD [address] [place] [address] Assigned Neuroscience Provider 06/17/22 08/04/22 Sandra Stover APRN DATAWAREHOUSE DEVELOPER [address] [place] [address] Assigned Neuroscience Provider 08/12/22 08/18/22 Bishop Hanna MD [address] [place] [address] Assigned Neuroscience Provider 08/05/22 08/11/22 Bishop Hanna MD [address] [place] [address] Assigned Neuroscience Provider 08/19/22 02/05/24 Nancy Huynh PA-C 420 [facility] 98 [place] [address] Physician Social Services Assistant Dermatology 09/13/22 Mally Vidales MD 3305 [facility] YASHIRA ASHRAF [address] Assigned PCP 11/25/22 Nancy Huynh PA-C [address] [place] [address] Assigned Surgical Provider 03/24/23 07/05/24 Nancy Huynh PA-C [address] [place] [address] Assigned Dermatology Provider 07/06/24 documented as of this encounter
--- OUTSIDE RECORDS SUMMARY | 2024-08-16 09:26 | XMS_ITS | Encounter Summary ---
Author Organization [facility] Address [address] [place] [address] Care Team Providers Care Microstrategy Architect Name Role Phone Mally Vidales MD Primary Care Provider [phone] Bishop Hanna MD Unavailable [phone] Nancy Huynh PA-C Unavailable [phone] Mally Vidales MD Unavailable [phone] Nancy Huynh PA-C Unavailable [phone] Nancy Huynh PA-C Unavailable [phone] Reason for Visit * Reason Onset Date Comments MyChart Communication 02/14/2023 Ear plugge d Encounter Details Date Type Department Care Team (Latest Contact Info) Description 02/14/2023 MyC Medical Advice [facility] [address] [place] [address] [address] [place] [address] Mally Vidales MD [address] [place] [address] YASHIRA ASHRAF [address] MyChart Communication (Ear plugged) Social History Tobacco Use Types Packs/Day Years [...] on file Legal Sex Female 5:25 PM PUBLICITY AGENT Gender Identity Not on file Sexual Orientation Not on file documented as of this encounter Plan of Treatment Not on file documented as of this encounter Visit Diagnoses Not on filedocumented in this encounter Care Teams Microstrategy Architect Relationship Specialty Start Date End Date Mally Vidales MD [address]305 [facility] YASHIRA ASHRAF [address] PCP - General Internal Medicine - Pediatrics 08/09/22 Bishop Hanna MD 909 [facility] [id number] [place] [address] Assigned Neuroscience Provider 08/19/22 02/05/24 Nancy Huynh PA-C 420 [facility] 98 [place] [address] Physician [employer] Task Force Planners Dermatology 09/13/22 Mally Vidales MD [address] [place] [address] YASHIRA ASHRAF [address] Assigned PCP 11/25/22 Nacny Huynh PA-C [address] [place] [address]771 Assigned Surgical Provider 03/24/23 07/05/24 Nancy Huynh PA-C [address] [place] [address] Assigned Dermatology Provider 07/06/24 documented as of this encounter
--- OUTSIDE RECORDS SUMMARY | 2024-08-16 09:26 | XMS_ITS | Encounter Summary ---
Author Organization [facility] Address [address] [place] [address] Care Team Providers Care Manual Qa Tester Name Role Phone Laila Ross APRN RETAIL LOAN ORIGINATOR Primary Care Provider [phone] Sandra Stover APRN RETAIL LOAN ORIGINATOR Unavaila ble Laila Ross APRN RETAIL LOAN ORIGINATOR Unavailable [phone] Bishop Hanna MD Unavailable [phone] Laureen Benz MD Unavailable [phone] Favian Oconnell MD Primary Care Provider [phone] Mally Vidales MD Primary Care Provider [phone] Sandra Stover APRN RETAIL LOAN ORIGINATOR Unavaila ble Bishop Hanna MD Unavailable +[phone] Bishop Hanna MD Unavailable [phone] Nancy Huynh PA-C Unavailable [phone] Mally Vidales MD Unavailable [phone] Nancy Huynh PA-C Unavailable [phone] Nancy Huynh PA-C Unavailable [phone] Encounter Details Date Type Department Care Team (Late st Contact Info) Description 05/03/2022 [facility] [address] [place] [address] Laila Ross APRN RETAIL LOAN ORIGINATOR [address] [place], [place] [address] Social History Tobacco Use Types Packs/Day Years Used Date Smoking Tobacco: Never Smokeless Tobacco: Never Alcohol Use Standard Drinks/Week Comments Not Currently 0 (1 standard drink = 0.6 oz pur e alcohol) PHQ-2 Answer Date Recorded PHQ-2 Score 0 05/01/2022 Comments Unknown Sex and Gender Information Value Date Recorded Sex Assigned at Not on file Legal Sex Female 5:25 PM WHITE WASHER Gender Identity Not on file Sexual Orientation Not on file COVID-19 Exposure Response Date Recorded In the last 10 days, have yo u been in contact with someone who was confirmed or suspected to have Coronavirus/COVID-19? No / Unsure 05/02/2022 5:19 PM WHITE WASHER documented as of this encounter Plan of Treatment Not on file documented as of this encounter Visit Diagnoses Not on filedocumented in this encounter Care Teams Manual Qa Tester Relationship Specialty Start Date End Date Laila Ross APRN RETAIL LOAN ORIGINATOR [address] [place] [address] PCP - General Internal Medicine 05/01/22 08/02/22 Favian Oconnell MD [address] [place], [place] 3559[address] PCP - General Family Medicine 08/03/22 08/08/22 Mally Vidales MD 3305 [facility] YASHIRA ASHRAF [address] PCP - General Internal Medicine - Pediatrics 08/09/22 Sandra Stover APRN RETAIL LOAN ORIGINATOR 909 [facility] [id number] [place] [address] Assigned Neuroscience Provider 04/29/22 05/12/22 Laila Ross, CORRECTIONAL FACILITY NURSE RETAIL LOAN ORIGINATOR [address] [place] [address] Assigned PCP 04/05/22 11/24/22 Bishop Hanna MD [address] [place] [address] Assigned Neuroscience Provider 05/13/22 06/16/22 Laureen Benz MD [address] [place] [address] [id number] Assigned Neuroscience Provider 06/17/22 08/04/22 Sandra Stover APRN RETAIL LOAN ORIGINATOR [address] [place] [address] Assigned Neuroscience Provider 08/12/22 08/18/22 Bishop Hanna MD [address] [place] [address] Assigned Neuroscience Provider 08/05/22 08/11/22 Bishop Hanna MD [address] [place] [address] 28[address] Assigned Neuroscience Provider 08/19/22 02/05/24 Nancy Huynh PA-C [address] [place] [address] Physician Marine Geologist [facility] 09/13/22 [place] [address] [place] [address] DR MC[place], YASHIRA [address] Assigned PCP 11/25/22 Nancy Huynh PA-C [address] [place] [address] Assigned Surgical Provider 03/24/23 07/05/24 Nancy Huynh PA-C [address] [place] [address] Assigned Dermatology Provider 07/06/24 documented as of this encounter
--- OUTSIDE RECORDS SUMMARY | 2024-08-16 09:26 | XMS_ITS | Encounter Summary ---
Author Organization [facility] Address [address] [place] [address] Care Team Providers Care Inside Sales Associate Name Role Phone Laila Ross APRN SPRING CLIPPER Unavailable [phone] Mally Vidales MD Primary Care Provider [phone] Bishop Hanna MD Unavailable [phone] Nancy Huynh PA-C Unavailable [phone] Mally Vidales MD Unavailable [phone] Nancy Huynh-C Unavailable [phone] Nancy Huynh-Bernadette Unavailable [phone] Reason for Visit * Reason Onset Date Comments MyChart Communication 09/19/2022 Viola orona Encounter Details Date Type Department Care Team (Latest Contact Info) Description 09/19/2022 [facility] Karol [address] [place] [address] [place] [address] Mally Vidales MD [address] [place] [address] YASHIRA ASHRAF [address] MyChart Communication (White tongue) Social History Tobacco Use Types Packs/Day Years Used Date Smoking Tobacco: Never Smokeless Tobacco: Never Alcohol Use Standard Drinks/Week Comments Not Currently 0 (1 standard drink = 0.6 oz pur e alcohol) PHQ-2 Answer Date Recorded PHQ-2 Score 2 08/01/2022 Comments No Sex and Gender Information Value Date Recorded Sex Assigned at Not on file Legal Sex Female 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 Gender Identity Not on file Sexual Orientation [...] on filedocumented in this encounter Care Teams Inside Sales Associate Relationship Specialty Start Date End Date Mally Vidales MD [address] [place] [address] YASHIRA ASHRAF [address] PCP - General Internal Medicine - Pediatrics 08/09/22 Laila Ross APRN SPRING CLIPPER [address] [place] [address] Assigned PCP 04/05/22 11/24/22 Bishop Hanna MD 909 [facility] [id number] [place] [address] Assigned Neuroscience Provider 08/19/22 02/05/24 Nancy Huynh PA-C 420 [facility] 98 [place] [address] Physician Chainstitch Elastic Attacher Dermatology 09/13/22 [place] [address] [place] [address] YASHIRA ASHRAF [address] Assigned PCP 11/25/22 Nancy Huynh PA-C [address] [place] [address] Assigned Surgical Provider 03/24/23 07/05/24 Nancy Huynh PA-C [address] [place] [address] [id number] Assigned Dermatology Provider 07/06/24 documented as of this encounter
--- NOTE | 2024-08-16 09:48 | CRLHL7_ITS ---
For Patients: As a result of the Century Cures Act, medical imaging exams and procedure reports are released immediately into your electronic medical record. You may view this report before your referring provider. If you have questions, please contact your health care provider. INDICATION: Cough, congestion TECHNIQUE: Chest 2 views. COMPARISON: None FINDINGS: The heart is normal in size. The pulmonary vasculature is within normal limits. The lungs are clear without focal consolidation, pleural effusion or pneumothorax. Bones are unremarkable. IMPRESSION: No acute process. Dictated by Roxy Witt MD @ 08/16/2024 10:16:30 AM (Electronically Signed)
[2024-08-16 10:04] LABS: Appearance Urine Clear (Clear); Bilirubin Urine Negative (Negative); Blood Urine Trace-lysed (Negative); Color Urine Yellow (Yellow); Glucose Urine Negative (Negative); Ketones Urine Negative (Negative); Leukocyte Esterase Urine 1+ (Negative); Nitrite Urine Negative (Negative); Protein Urine Negative (Negative); Urobilinogen Urine 0.2 (0.2-1.0)
--- OUTSIDE RECORDS SUMMARY | 2024-08-16 10:07 | XMS_ITS | Encounter Summary ---
Author Organization [facility] Address [address] [place] [address] Care Team Providers Care Eeg Technician Name Role Phone Mally Vidales MD Primary Care Provider [phone] Bishop Hanna MD Unavailable [phone] Nancy Huynh PA-C Unavailable [phone] Mally Vidales MD Unavailable [phone] Nancy Huynh PA-C Unavailable [phone] Nancy Huynh PA-C Unavailable [phone] Reason for Visit * Reason Onset Date Comments Patient/info Update 01/06/2023 Encounter Details Date Type Department Care Team (Late st Contact Info) Description 01/06/2023 MyC Medical Advice [facility] Karol [address] [facility] [address] [place] [address] Mally Vidales MD [address] [place] [address] YASHIRA ASHRAF [address] Patient/info Update Social History [...] on file Legal Sex Female 5:25 PM SALES AGENT Gender Identity Not on file Sexual Orientation Not on file documented as of this encounter Miscellaneous Notes * Telephone Encounter - Calixto Slaughter RN - 01/08/2023 7:23 AM CDT Recommend scheduling with BRAND ADVISOR or visit with you? Calixto Chau RN 01/08/2023 at 7:24 AM documented in this encounter Plan of Treatment Not on file documented as of this encounter Visit Diagnoses Not on filedocumented in this encounter Care Teams Eeg Technician Relationship Specialty Start Date End Date Mally Vidales MD [address] [place] [address] YASHIRA ASHRAF [address] PCP - General Internal Medicine - Pediatrics 08/09/22 Bishop Hanna MD 909 [id number] [place] [address] Assigned Neuroscience Provider 08/19/22 02/05/24 Nancy Huynh PA-C 420 [facility] 98 [place] [address] Physician Correspondence Dictator Dermatology 09/13/22 Mally Vidales MD [address] [place] [address] YASHIRA ASHRAF [address] Assigned PCP 11/25/22 Nancy Huynh PA-C [address] [place] [address] Assigned Surgical Provider 03/24/23 07/05/24 Nancy Huynh PA-C [address] [place] [address] Assigned Dermatology Provider 07/06/24 documented as of this encounter
--- OUTSIDE RECORDS SUMMARY | 2024-08-16 10:07 | XMS_ITS | Encounter Summary ---
Author Organization [facility] Address [address] [place] [address] Care Team Providers Care Diversional Therapist'S Assistant Name Role Phone Laila Ross APRN MULTIPLE PUNCH PRESS OPERATOR Primary Care Provider [phone] Laila Ross APRN MULTIPLE PUNCH PRESS OPERATOR Unavailable [phone] Laureen Benz MD Unavailable [phone] Favian Oconnell MD Primary Care Provider [phone] Mally Vidales MD Primary Care Provider [phone] Sandra Stover APRN MULTIPLE PUNCH PRESS OPERATOR Unavaila ble Bishop Hnana MD Unavailable [phone] Bishop Hanna MD Unavailable [phone] Nancy Huynh PA-C Unavailable [phone] Mally Vidales MD Unavailable [phone] Nancy HuynhC Unavailable [phone] Nancy Huynh PA-C Unavailable [phone] Encounter Details Date Type Department Care Team (Late st Contact Info) Description 07/24/2022 [facility] [address] [place] [address] Bishop Hanna MD [address] [place] [address] [id number] [place] [address] Social History Tobacco Use Types Packs/Day Years Used Date Smoking Tobacco: Never Smokeless Tobacco: Never Alcohol Use Standard Drinks/Week Comments Not Currently 0 (1 standard drink = 0.6 oz pur e alcohol) PHQ-2 Answer Date Recorded PHQ-2 Score 0 05/10/2022 Comments No Sex and Gender Information Value Date Recorded Sex Assigned at Not on file Legal 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 Female 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 Gender Identity Not on file Sexual Orientation [...] on filedocumented in this encounter Care Teams Diversional Therapist'S Assistant Relationship Specialty Start Date End Date Laila Ross APRN MULTIPLE PUNCH PRESS OPERATOR [address] [place] [address] PCP - General Internal Medicine 05/01/22 08/02/22 [place] [address] [place] [address] 474522 PCP - General Family Medicine 08/03/22 08/08/22 Mally Vidales MD 3305 [facility] YASHIRA ASHRAF [address] PCP - General Internal Medicine - Pediatrics 08/09/22 Laila Ross APRN MULTIPLE PUNCH PRESS OPERATOR [address] [place] [address] Assigned PCP 04/05/22 11/24/22 Laureen Benz MD 909 [id number] [place], [place] [address] Assigned Neuroscience Provider 06/17/22 08/04/22 Sandra Stover APRN MULTIPLE PUNCH PRESS OPERATOR [address] [address] Assigned Neuroscience Provider 08/12/22 08/18/22 Bishop Hanna MD [address] [address] Assigned Neuroscience Provider 08/05/22 08/11/22 Bishop Hanna MD [address] [address] Assigned Neuroscience Provider 08/19/22 02/05/24 Nancy Huynh PA-C 420 [facility] 98 [place] [address] Physician Piped Pocket Machine Operator Dermatology 09/13/22 Mally Vidales MD [address] [facility] [place] [address] Assigned PCP 11/25/22 Nancy Huynh PA-C [address] [place] [address] Assigned Surgical Provider 03/24/23 07/05/24 Nancy Huynh PA-C [address] [place] [address] Assigned Dermatology Provider 07/06/24 documented as of this encounter
--- OUTSIDE RECORDS SUMMARY | 2024-08-16 10:07 | XMS_ITS | Encounter Summary ---
Author Organization [facility] Address [address] [place] [address] Care Team Providers Care Airport Operations Specialist Name Role Phone Mally Vidales MD Primary Care Provider [phone] Nancy Huynh PA-C Unavailable [phone] Mally Vidales MD Unavailable [phone] Nancy Huynh PA-C Unavailable [phone] Encounter Details Date Type Department Care Team (Late st Contact Info) Description 07/18/2024 Orders Only [facility] [address] 3[address] [place] [address] Marcela Faust PA-C Dermatology [address] [place] [address] [id number] Periorificial dermatitis (Primary Dx) Social History Tobacco [...] on file Legal Sex Female 5:25 PM WELDER 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 Gender Identity Not on file Sexual Orientation Not on file documented as of this encounter Plan of Treatment Not on file documented as of this encounter Visit Diagnoses Diagnosis Periorificial dermatitis- Primary documented in this encounter Care Teams Airport Operations Specialist Relationship Specialty Start Date End Date Mally Vidales MD 3305 [facility] YASHIRA ASHRAF [address] PCP - General Internal Medicine - Pediatrics 08/09/22 Nancy Huynh PA-C [address] [place] [address] Physician Military Logistics Specialist Dermatology 09/13/22 Mally Vidales MD 3305 [facility] YASHIRA ASHRAF [address] Assigned PCP 11/25/22 Nancy Huynh PA-C [address] [place] [address] Assigned Dermatology Provider 07/06/24 documented as of this encounter
--- OUTSIDE RECORDS SUMMARY | 2024-08-16 10:07 | XMS_ITS | Encounter Summary ---
Author Organization [facility] Address [address] [place] [address] Care Team Providers Care Mainspring Winder And Oiler Name Role Phone Laila Ross APRN SENIOR CATERING SALES MANAGER Primary Care Provider [phone] Laila Ross APRN SENIOR CATERING SALES MANAGER Unavailable [phone] Laureen Benz MD Unavailable [phone] Favian Oconnell MD Primary Care Provider [phone] Mally Vidales MD Primary Care Provider [phone] Sandra Stover APRN SENIOR CATERING SALES MANAGER Unavaila ble Bishop Hanna MD Unavailable [phone] Bishop Hanna MD Unavailable [phone] Nancy HuynhC Unavailable [phone] Mally Vidales MD Unavailable [phone] Nancy Huynh-C Unavailable [phone] Nancy Huynh-C Unavailable [phone] Reason for Visit * Reason Onset Date Comments Appointment 07/15/2022 Encounter Details Date Type Department Care Team (Late st Contact Info) Description 07/15/2022 MyC Medical Advice [facility] [address] [place] [address] Laila Ross APRN SENIOR CATERING SALES MANAGER [address] [place] [address] Appointment Social History Tobacco Use Types Packs/Day Years Used Date Smoking Tobacco: Never Smokeless Tobacco: Never Alcohol Use Standard Drinks/Week Comments Not Currently 0 (1 standard drink = 0.6 oz pur e alcohol) PHQ-2 Answer Date Recorded PHQ-2 Score 0 05/10/2022 Comments No Sex and Gender Information Value Date Recorded Sex Assigned at Not on file Legal 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 Female 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 Gender Identity Not on file Sexual Orientation [...] on filedocumented in this encounter Care Teams Mainspring Winder And Oiler Relationship Specialty Start Date End Date Laila Ross APRN SENIOR CATERING SALES MANAGER [address] [place] [address] PCP - General Internal Medicine 05/01/22 08/02/22 Favian Oconnell MD [address] [place] [address] PCP - General Family Medicine 08/03/22 08/08/22 Mally Vidales MD [address] [facility] [place] [address] PCP - General Internal Medicine - Pediatrics 08/09/22 Laila Ross, CESSPOOL CLEANER SENIOR CATERING SALES MANAGER [address] [place] [address] Assigned PCP 04/05/22 11/24/22 Laureen Benz MD [address] [place] [address] Assigned Neuroscience Provider 06/17/22 08/04/22 Sandra Stover APRN SENIOR CATERING SALES MANAGER [address] [place] [address] Assigned Neuroscience Provider 08/12/22 08/18/22 Bishop Hanna MD [address] [place] [address] Assigned Neuroscience Provider 08/05/22 08/11/22 Bishop Hanna MD [address] [place] [address] Assigned Neuroscience Provider 08/19/22 02/05/24 Nancy Huynh PA-C 420 [facility] 98 [place] [address] Physician Rn Supplemental Dermatology 09/13/22 Mally Vidales MD 3305 [facility] YASHIRA ASHRAF [address] Assigned PCP 11/25/22 Nancy Huynh PA-C [address] [place] [address] Assigned Surgical Provider 03/24/23 07/05/24 Nancy Huynh PA-C [address] [place] [address] Assigned Dermatology Provider 07/06/24 documented as of this encounter
--- OUTSIDE RECORDS SUMMARY | 2024-08-16 10:07 | XMS_ITS | Clinical Summary ---
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 PCP - General 07/09/22 Marlene Strickland MD [address] [place] [address] Family Practice 07/09/22
--- OUTSIDE RECORDS SUMMARY | 2024-08-16 10:07 | XMS_ITS | Encounter Summary ---
Author Organization [facility] Address [address] [place] [address] Care Team Providers Care Oven Baker Name Role Phone Laila Ross APRN TURBO GENERATOR OILER Primary Care Provider [phone] Sandra Stover APRN TURBO GENERATOR OILER Unavaila ble Laila Ross APRN TURBO GENERATOR OILER Unavailable [phone] Bishop Hanna MD Unavailable [phone] Laureen Benz MD Unavailable [phone] Favian Oconnell MD Primary Care Provider [phone] Mally Vidales MD Primary Care Provider [phone] Sandra Stover APRN TURBO GENERATOR OILER Unavaila ble Bishop Hanna MD Unavailable [phone] Bishop Hanna MD Unavailable [phone] Nancy Huynh PA-C Unavailable [phone] Mally Vidales MD Unavailable [phone] Nancy Huynh PA-C Unavailable [phone] Nancy Huynh PA-C Unavailable [phone] Encounter Details Date Type Department Care Team (Late st Contact Info) Description 05/10/2022 [facility] Neurosurgery [address] [place] [address] Bishop Hanna MD 909 [facility] [id number] [place], [place] 3332[address] Social History Tobacco Use Types Packs/Day Years Used Date Smoking Tobacco: Never Smokeless Tobacco: Never Alcohol Use Standard Drinks/Week Comments Not Currently 0 (1 standard drink = 0.6 oz pur e alcohol) PHQ-2 Answer Date Recorded PHQ-2 Score 0 05/10/2022 Comments Unknown Sex and Gender Information Value Date Recorded Sex Assigned at Not on file Legal Sex Female 5:25 PM MANAGER BENEFIT Gender Identity Not on file Sexual Orientation Not on file COVID-19 Exposure Response Date Recorded In the last 10 days, have yo u been in contact with someone who was confirmed or suspected to have Coronavirus/COVID-19? No / Unsure 05/02/2022 5:19 PM MANAGER BENEFIT documented as of this encounter Miscellaneous Notes * Telephone Encounter - Tori Ocampo LPN - 05/10/2022 10:26 AM MANAGER BENEFIT Attn: Stroke/Neurovascular Nurse Pool Eboni Ocampo LPN Neurosurgery GER BENEFIT documented in this encounter Plan of Treatment Not on file documented as of this encounter Visit Diagnoses Not on filedocumented in this encounter Care Teams Oven Baker Relationship Specialty Start Date End Date Laila Ross, INDUSTRIAL METHODS CONSULTANT TURBO GENERATOR OILER [address] [place] [address] PCP - General Internal Medicine 05/01/22 08/02/22 [place] [address] [place] [address] 727382 PCP - General Family Medicine 08/03/22 08/08/22 Mally Vidales MD 3305 [facility] YASHIRA ASHRAF [address] PCP - General Internal Medicine - Pediatrics 08/09/22 Sandra Stover APRN TURBO GENERATOR OILER [address] [place] [address] Assigned Neuroscience Provider 04/29/22 05/12/22 Laila Ross, INDUSTRIAL METHODS CONSULTANT TURBO GENERATOR OILER [address] [place] [address] Assigned PCP 04/05/22 11/24/22 Bishop Hanna MD [address] [place] [address] Assigned Neuroscience Provider 05/13/22 06/16/22 Laureen Benz MD [address] [place] [address] Assigned Neuroscience Provider 06/17/22 08/04/22 Sandra Stover APRN TURBO GENERATOR OILER [address] [place] [address] Assigned Neuroscience Provider 08/12/22 08/18/22 Bishop Hanna MD [address] [place] [address] Assigned Neuroscience Provider 08/05/22 08/11/22 Bishop Hanna MD [address] [place] [address] Assigned Neuroscience Provider 08/19/22 02/05/24 Nancy Huynh PA-C 420 [facility] 98 [place] [address] Physician Cupboard Builder Dermatology 09/13/22 Mally Vidales MD 3305 [facility] YASHIRA ASHRAF [address] Assigned PCP 11/25/22 Nancy Huynh PA-C [address] [place] [address] Assigned Surgical Provider 03/24/23 07/05/24 Nancy Huynh PA-C [address] [place] [address] Assigned Dermatology Provider 07/06/24 documented as of this encounter
--- OUTSIDE RECORDS SUMMARY | 2024-08-16 10:07 | XMS_ITS | Encounter Summary ---
Author Organization [facility] Address [address] [place] [address] Care Team Providers Care Kitchen Worker Name Role Phone Laila Ross APRN MANAGER ENTRY Primary Care Provider [phone] Sandra Stover APRN MANAGER ENTRY Unavaila ble Laila Ross APRN MANAGER ENTRY Unavailable [phone] Bishop Hanna MD Unavailable [phone] Laureen Benz MD Unavailable [phone] Favian Oconnell MD Primary Care Provider [phone] Mally Vidales MD Primary Care Provider [phone] Sandra Stover APRN MANAGER ENTRY Unavaila ble Bishop Hanna MD Unavailable [phone] Bishop Hanna MD Unavailable [phone] Nancy Huynh PA-C Unavailable [phone] Mally Vidales MD Unavailable [phone] Nancy Huynh PA-C Unavailable [phone] Nancy Huynh PA-C Unavailable [phone] Encounter Details Date Type Department Care Team (Late st Contact Info) Description 05/03/2022 [facility] [address] [place] [address] Laila Ross APRN MANAGER ENTRY [address] [place] [address] Social History Tobacco Use Types Packs/Day Years Used Date Smoking Tobacco: Never Smokeless Tobacco: Never Alcohol Use Standard Drinks/Week Comments Not Currently 0 (1 standard drink = 0.6 oz pur e alcohol) PHQ-2 Answer Date Recorded PHQ-2 Score 0 05/01/2022 Comments Unknown Sex and Gender Information Value Date Recorded Sex Assigned at Not on file Legal Sex Female 5:25 PM CORPORATE LIBRARIAN Gender Identity Not on file Sexual Orientation Not on file COVID-19 Exposure Response Date Recorded In the last 10 days, have yo u been in contact with someone who was confirmed or suspected to have Coronavirus/COVID-19? No / Unsure 05/02/2022 5:19 PM CORPORATE LIBRARIAN documented as of this encounter Plan of Treatment Not on file documented as of this encounter Visit Diagnoses Not on filedocumented in this encounter Care Teams Kitchen Worker Relationship Specialty Start Date End Date Laila Ross APRN MANAGER ENTRY [address] [place] [address] PCP - General Internal Medicine 05/01/22 08/02/22 Favian Oconnell MD [address] [place], [place] 4665[address] PCP - General Family Medicine 08/03/22 08/08/22 Mally Vidales MD 3305 [facility] YASHIRA ASHRAF [address] PCP - General Internal Medicine - Pediatrics 08/09/22 Sandra Stover APRN MANAGER ENTRY 9[address] [facility] [id number] [address] Assigned Neuroscience Provider 04/29/22 05/12/22 Laila Ross, REHABILITATION WORKER MANAGER ENTRY [address] [place] [address] Assigned PCP 04/05/22 11/24/22 Bishop Hanna MD [address] [place] [address] Assigned Neuroscience Provider 05/13/22 06/16/22 Laureen Benz MD [address] [place] [address] 755635 Assigned Neuroscience Provider 06/17/22 08/04/22 Sandra Stover APRN MANAGER ENTRY [address] [place] [address] Assigned Neuroscience Provider 08/12/22 08/18/22 Bishop Hanna MD [address] [place] [address] Assigned Neuroscience Provider 08/05/22 08/11/22 Bishop Hanna MD [address] [place] [address] Assigned Neuroscience Provider 08/19/22 02/05/24 Nancy Huynh PA-C [address] [place] [address] Physician Powder Mill Operator [facility] 09/13/22 [place] [address] [place] [address] DR MCQUEEN, YASHIRA [address] Assigned PCP 11/25/22 Nancy Huynh PA-C [address] [place] [address]14 Assigned Surgical Provider 03/24/23 07/05/24 Nancy Huynh PA-C [address] [place] [address] Assigned Dermatology Provider 07/06/24 documented as of this encounter
--- OUTSIDE RECORDS SUMMARY | 2024-08-16 10:07 | XMS_ITS | Encounter Summary ---
Author Organization [facility] Address [address] [place] [address] Care Team Providers Care Barber Instructor Name Role Phone Mally Vidales MD Primary Care Provider [phone] Bishop Hanna MD Unavailable [phone] Nancy Huynh PA-C Unavailable [phone] Mally Vidales MD Unavailable [phone] Nancy Huynh PA-C Unavailable [phone] Nancy Huynh PA-C Unavailable [phone] Reason for Visit * Reason Onset Date Comments MyChart Communication 02/14/2023 Ear plugge d Encounter Details Date Type Department Care Team (Latest Contact Info) Description 02/14/2023 MyC Medical Advice [facility] Karol [address] [place] [address] [address] [place]ASHIR[place] Roberson [address] Mally Vidales MD [address] [place] [address] YASHIRA ASHRAF [address] MyChart Communication (Ear plugged) [...] on file Legal Sex Female 5:25 PM BURN NURSE Gender Identity Not on file Sexual Orientation Not on file documented as of this encounter Plan of Treatment Not on file documented as of this encounter Visit Diagnoses Not on filedocumented in this encounter Care Teams Barber Instructor Relationship Specialty Start Date End Date Mally Vidales MD 3305 [facility] YASHIRA ASHRAF [address] PCP - General Internal Medicine - Pediatrics 08/09/22 Bishop Hanna MD 909 [facility] [id number] [place] [address] Assigned Neuroscience Provider 08/19/22 02/05/24 Nancy Huynh PA-C 420 [facility] [address] [place] [address] Physician Automatic Shirring Machine Operator Dermatology 09/13/22 Mally Vidales MD [address] [place] [address] YASHIRA ASHRAF [address] Assigned PCP 11/25/22 Nancy Huynh PA-C [address] [place] [address] Assigned Surgical Provider 03/24/23 07/05/24 Nancy Huynh PA-C [address] [place] [address] Assigned Dermatology Provider 07/06/24 documented as of this encounter
--- OUTSIDE RECORDS SUMMARY | 2024-08-16 10:07 | XMS_ITS | Clinical Summary ---
Author Organization [facility] Address [address] [place] [address] Care Team Providers Care Front Tender Name Role Phone Mally Vidales MD Primary Care Provider [phone] Nancy Huynh PA-C Unavailable [phone] Mally Vidales MD Unavailable [phone] Nancy Huynh PA-C Unavailable [phone] Allergies Active Allergy Reactions Criticality Noted Date Comments Aspirin Swelling 08/31/2022 Patient reports swelling of tongue Penicillins Rash,Itching Low 10/18/2012 Other reaction(s): *Unknown - Childhood Rxn Ranitidine Hives 03/11/2018 Sulfa Antibiotics Rash,Swelling Low 11/05/2012 Medications fluticasone (FLONASE) 50 MCG/ACT nasal sprayIndication s:Congestion of paranasal sinus Fiatt 1 spray into both nostrils daily 16 [...] Department Care Team Description 07/18/2024 Orders Only [facility] Dermatology [address] [phone] Marcela Faust PA-C Periorificial dermatitis (Primary Dx) 07/15/2024 MyC Medical Advice [address] [phone] Nancy Huynh PA-C 07/01/2024 1:45 PM CDT Office Visit [address] [phone] Nancy Huynh PA-C Periorificial dermatitis (Primary Dx); Acne vulgaris 07/01/2024 Travel 06/30/2024 Travel 06/23/2024 MyC Medical Advice [facility] Dermatology [address] [address] Nnacy Huynh PA-C MyChart Communication 05/19/2024 9:30 AM LICENSED NURSE PRACTITIONER Office Visit [facility] Dermatology [address] [address] Nancy eCja PA-C Skin cancer screening (Primary Dx); Acne [...] on file Legal Sex Female 5:25 PM LICENSED NURSE PRACTITIONER Gender Identity Not on file Sexual Orientation Not on file Last Filed Vital Signs Vital Sign Reading Time Taken Comments Blood Pressure 110/76 06/26/2023 10:15 AM CDT Pulse 87 06/26/2023 10:15 AM CDT Temperature 36.3 C (97.4 F) 03/01/2023 10:29 AM LICENSED NURSE PRACTITIONER Respiratory Rate 20 06/26/2023 10:15 AM CDT [...] patient's age to complete this topic Insurance [facility] Address: [address] [address] [facility] Address: [facility] [address] [place] [address] Care Teams Front Tender Relationship Specialty Start Date End Date Mally Vidales MD 3305 [facility] YASHIRA ASHRAF [address] PCP - General Internal Medicine - Pediatrics 08/09/22 Nancy Huynh PA-C [address] [place] [address] Physician Video Player Mechanic Dermatology 09/13/22 Mally Vidales MD 3305 [facility] YASHIRA ASHRAF [address] Assigned PCP 11/25/22 Nancy Huynh PA-C [address] [place] [address] Assigned Dermatology Provider 07/06/24
--- OUTSIDE RECORDS SUMMARY | 2024-08-16 10:07 | XMS_ITS | Encounter Summary ---
Author Organization [facility] Address [address] [place] [address] Care Team Providers Care Painter Shipyard Name Role Phone Laila Ross APRN SPEECH PATHOLOGY TEACHER Primary Care Provider [phone] Sandra Stover APRN SPEECH PATHOLOGY TEACHER Unavaila ble Laila Ross APRN SPEECH PATHOLOGY TEACHER Unavailable [phone] Bishop Hanna MD Unavailable [phone] Laureen Benz MD Unavailable [phone] Favian Oconnell MD Primary Care Provider [phone] Mally Vidales MD Primary Care Provider [phone] Sandra Stover APRN SPEECH PATHOLOGY TEACHER Unavaila ble Bishop Hanna MD Unavailable [phone] Bishop Hanna MD Unavailable [phone] Nancy Huynh PA-C Unavailable [phone] Mally Vidales MD Unavailable [phone] Nancy Huynh PA-C Unavailable [phone] Nancy Huynh PA-C Unavailable [phone] Reason for Visit * Reason Onset Date Comments Results 05/02/2022 MRI Encounter Details Date Type Department Care Team (Late st Contact Info) Description 05/02/2022 MyC Medical Advice [facility] 1st Floor, Clinic 1A [address] [place] [address] Sandra Stover APRN CNP [address] [facility] [id number] [place] [address] Results (MRI ) Social History Tobacco Use Types Packs/Day Years Used Date Smoking Tobacco: Never Smokeless Tobacco: Never Alcohol Use Standard Drinks/Week Comments Not Currently 0 (1 standard drink = 0.6 oz pur e alcohol) PHQ-2 Answer Date Recorded PHQ-2 Score 0 05/01/2022 Comments Unknown Sex and Gender Information Value Date Recorded Sex Assigned at Not on file Legal Sex Female 5:25 PM WATER PURIFICATION CHEMIST Gender Identity Not on file Sexual Orientation Not on file COVID-19 Exposure Response Date Recorded In the last 10 days, have yo u been in contact with someone who was confirmed or suspected to have Coronavirus/COVID-19? No / Unsure 05/02/2022 5:19 PM WATER PURIFICATION CHEMIST documented as of this encounter Miscellaneous Notes * Telephone Encounter - Dolores Rivera RN - 05/03/2022 1:44 PM WATER PURIFICATION CHEMIST See her new message. R PURIFICATION CHEMIST * Telephone Encounter - Dolores Rivera RN - 05/03/2022 10:18 AM WATER PURIFICATION CHEMIST Will route this [employer] message to her Neurology provider who ordered the MRI, Sandra Stover APRN CNP. Also sent message back regarding her Telephone enc asking if should stay on the aspirin. Per Cody Ulloa Lisa R, APRN CNP Note I would continue to take this until she sees Neurosurgery next week. They will have final input on this. R PURIFICATION CHEMIST documented in this encounter Plan of Treatment Not on file documented as of this encounter Visit Diagnoses Not on filedocumented in this encounter Care Teams Painter Shipyard Relationship Specialty Start Date End Date Laila Ross APRN CNP [address] [place] [address] PCP - General Internal Medicine 05/01/22 08/02/22 Favian Oconnell MD [address] [place], [place] [address] PCP - General Family Medicine 08/03/22 08/08/22 Mally Vidales MD [address] [facility] [place] [address] PCP - General Internal Medicine - Pediatrics 08/09/22 Sandra Stover APRN SPEECH PATHOLOGY TEACHER [address] [place] [address] [id number] Assigned Neuroscience Provider 04/29/22 05/12/22 Laila Ross APRN SPEECH PATHOLOGY TEACHER [address] [place] [address] Assigned PCP 04/05/22 11/24/22 Bishop Hanna MD [address] [place] [address] 902005 Assigned Neuroscience Provider 05/13/22 06/16/22 Laureen Benz MD [address] [place] [address] 365815 Assigned Neuroscience Provider 06/17/22 08/04/22 Sandra Stover APRN SPEECH PATHOLOGY TEACHER [address] [place] [address] Assigned Neuroscience Provider 08/12/22 08/18/22 Bishop Hanna MD [address] [place] [address] Assigned Neuroscience Provider 08/05/22 08/11/22 Bishop Hanna MD [address] [address] Assigned Neuroscience Provider 08/19/22 02/05/24 Nancy Huynh PA-C [address] [place] [address] 98 [place] [address] Physician Textile Chemist Dermatology 09/13/22 Mally Vidales MD [address] [facility] [place] [address] Assigned PCP 11/25/22 Nancy Huynh PA-C [address] [place] [address] Assigned Surgical Provider 03/24/23 07/05/24 Nancy Huynh PA-C [address] [place] [address] Assigned Dermatology Provider 07/06/24 documented as of this encounter
--- OUTSIDE RECORDS SUMMARY | 2024-08-16 10:07 | XMS_ITS | Encounter Summary ---
Author Organization [facility] Address [address] [place] [address] Care Team Providers Care Hospital Food Service Worker Name Role Phone No Ref-Primary, Physician Primary Care Provider Laila Ross APRN MAKEUP SALES CONSULTANT Primary Care Provider [phone] Sandra Stover APRN MAKEUP SALES CONSULTANT Unavaila ble Laila Ross APRN MAKEUP SALES CONSULTANT Unavailable [phone] Bishop Hanna MD Unavailable [phone] Laureen Benz MD Unavailable [phone] Favian Oconnell MD Primary Care Provider [phone] Mally Vidales MD Primary Care Provider [phone] Sandra Stover APRN MAKEUP SALES CONSULTANT Unavaila ble Bishop Hanna MD Unavailable [phone] Bishop Hanna MD Unavailable [phone] Nancy Huynh PA-C Unavailable [phone] Mally Vidales MD Unavailable [phone] Nancy Huynh PA-C Unavailable [phone] Nancy Huynh PA-C Unavailable [phone] Encounter Details Date Type Department Care Team (Late st Contact Info) Description 04/28/2022 [facility] Neurology Clinic [address] [phone] Sandra Stover APRN MAKEUP SALES CONSULTANT [address] [place] [address] [id number] Social History Tobacco Use Types Packs/Day Years Used Date Smoking Tobacco: Never Smokeless Tobacco: Never PHQ-2 Answer Date Recorded PHQ-2 Score 0 05/01/2022 Comments Unknown Sex and Gender Information Value Date Recorded Sex Assigned at Not on file Legal Sex Female 5:25 PM MACHINE RIVETER Gender Identity Not on file Sexual Orientation Not on file COVID-19 Exposure Response Date Recorded In the last 10 days, have yo u been in contact with someone who was confirmed or suspected to have Coronavirus/COVID-19? No / Unsure 05/01/2022 12:57 PM MACHINE RIVETER documented as of this encounter Plan of Treatment Not on file documented as of this encounter Visit Diagnoses Not on filedocumented in this encounter Care Teams Hospital Food Service Worker Relationship Specialty Start Date End Date No Ref-Primary, Physician PCP - General 04/16/22 04/30/22 Laila Ross APRN MAKEUP SALES CONSULTANT [facility] [place] [address] PCP - General Internal Medicine 05/01/22 08/02/22 Favian Oconnell MD [address] [place] [address] 267812 PCP - General Family Medicine 08/03/22 08/08/22 Mally Vidales MD [address] [place] [address] YASHIRA ASHRAF [address] PCP - General Internal Medicine - Pediatrics 08/09/22 Sandra Stover APRN MAKEUP SALES CONSULTANT [address] [place] [address] Assigned Neuroscience Provider 04/29/22 05/12/22 Lalia Ross GOLF STARTER AND RANGER MAKEUP SALES CONSULTANT [address] [place] [address] Assigned PCP 04/05/22 11/24/22 Bishop Hanna MD [address] [place] [address] Assigned Neuroscience Provider 05/13/22 06/16/22 Laureen Benz MD [address] [place] [address] 199[address] Assigned Neuroscience Provider 06/17/22 08/04/22 Sandra Stover APRN MAKEUP SALES CONSULTANT [address] [place] [address] 248325 Assigned Neuroscience Provider 08/12/22 08/18/22 Bishop Hanna MD [address] [place] [address] Assigned Neuroscience Provider 08/05/22 08/11/22 Bishop Hanna MD [address] [place] [address] 626385 Assigned Neuroscience Provider 08/19/22 02/05/24 Nancy Huynh PA-C [address] [place] [address] 012505 Physician Fws Faculty Assistant Dermatology 09/13/22 Mally Vidales MD 3305 [facility] YASHIRA ASHRAF [address] Assigned PCP 11/25/22 Nancy Huynh PA-C [address] [place] [address] Assigned Surgical Provider 03/24/23 07/05/24 Nancy Huynh PA-C [address] [place] [address] Assigned Dermatology Provider 07/06/24 documented as of this encounter
--- OUTSIDE RECORDS SUMMARY | 2024-08-16 10:07 | XMS_ITS | Encounter Summary ---
Author Organization [facility] Address [address] [place] [address] Care Team Providers Care Database Report Writer Name Role Phone Laila Ross APRN WEBLOGIC ADMINISTRATOR Unavailable [phone] Mally Vidales MD Primary Care Provider [phone] Bishop Hanna MD Unavailable [phone] Nancy Huynh PA-C Unavailable [phone] Mally Vidales MD Unavailable [phone] Nancy Huynh-C Unavailable [phone] Nancy Huynh-Bernadette Unavailable [phone] Reason for Visit * Reason Onset Date Comments MyChart Communication 09/19/2022 Viola [facility]ona Encounter Details Date Type Department Care Team (Latest Contact Info) Description 09/19/2022 [facility] Karol [address] [facility] [address] [place] [address] Mally Vidales MD [address] [place] [address] YASHIRA ASHRAF [address] MyChart Communication (White tongue) [...] on file Legal Sex Female 5:25 PM COMPOSITION SIDING WORKER Gender Identity Not on file Sexual Orientation [...] on filedocumented in this encounter Care Teams Database Report Writer Relationship Specialty Start Date End Date Mally Vidales MD [address] [place] [address] YASHIRA ASHRAF [address] PCP - General Internal Medicine - Pediatrics 08/09/22 Laila Ross APRN WEBLOGIC ADMINISTRATOR [address] [place] [address] Assigned PCP 04/05/22 11/24/22 Bishop Hanna MD [address] [facility] [id number] [place] [address] Assigned Neuroscience Provider 08/19/22 02/05/24 Nancy Huynh PA-C 420 [facility] 98 [place] [address] Physician Founder And President Dermatology 09/13/22 [place] [address] [place] [address] YASHIRA ASHRAF [address] Assigned PCP 11/25/22 Nancy Huynh PA-C [address] [place] [address] Assigned Surgical Provider 03/24/23 07/05/24 Nancy Huynh PA-C [address] [place] [address] [id number] Assigned Dermatology Provider 07/06/24 documented as of this encounter
--- OUTSIDE RECORDS SUMMARY | 2024-08-16 10:07 | XMS_ITS | Encounter Summary ---
Author Organization [facility] Address [address] [place] [address] Care Team Providers Care Die Trouble Shooter Name Role Phone Laila Ross APRN CLINICAL PROGRAM MANAGER Unavailable [phone] Mally Vidales MD Primary Care Provider [phone] Bishop Hanna MD Unavailable [phone] Nancy Huynh PA-C Unavailable [phone] Mally Vidales MD Unavailable [phone] Nancy Huynh PA-C Unavailable [phone] Nancy Huynh PA-C Unavailable [phone] Reason for Visit * Reason Onset Date Comments Medication Question 09/13/2022 Ok to take m agnesium? Encounter Details Date Type Department Care Team (Late st Contact Info) Description 09/13/2022 MyC Medical Advice [facility] Karol [address] [place] [address] Drive [address] [place] [address] Mally Vidales MD [address] [place] [address] YASHIRA ASHRAF [id number] Medication Question (Ok to [...] on file Legal Sex Female 5:25 PM COMPRESSOR OPERATOR PORTABLE Gender Identity Not on file Sexual Orientation [...] on filedocumented in this encounter Care Teams Die Trouble Shooter Relationship Specialty Start Date End Date Mally Vidales MD 3305 [facility] YASHIRA ASHRAF [address] PCP - General Internal Medicine - Pediatrics 08/09/22 Laila Ross APRN CLINICAL PROGRAM MANAGER [address] [place] [address] Assigned PCP 04/05/22 11/24/22 Bishop Hanna MD 909 [facility] [id number] [place] [address] Assigned Neuroscience Provider 08/19/22 02/05/24 Nancy Huynh PA-C 420 [facility] 98 [place] [address] Physician Line Puller Dermatology 09/13/22 Mally Vidales MD 3305 [facility] YASHIRA ASHRAF [address] Assigned PCP 11/25/22 Nancy Hyunh PA-C [address] [place] [address] Assigned Surgical Provider 03/24/23 07/05/24 Nancy Huynh PA-C [address] [place] [address] [id number] Assigned Dermatology Provider 07/06/24 documented as of this encounter
--- OUTSIDE RECORDS SUMMARY | 2024-08-16 10:07 | XMS_ITS | Encounter Summary ---
Author Organization [facility] Address [address] [place] [address] Care Team Providers Care Medical Nurse Name Role Phone Mally Vidales MD Primary Care Provider [phone] Nancy Huynh PA-C Unavailable [phone] Mally Vidales MD Unavailable [phone] Nancy Huynh PA-C Unavailable [phone] Encounter Details Date Type Department Care Team (Late st Contact Info) Description 07/15/2024 MyC Medical Advice [address] [address] Nancy Huynh PA-C [address] [place] [address] [id number] Social History Tobacco Use Types Packs/Day Years [...] on file Legal Sex Female 5:25 PM VICE PRESIDENT SUPPLY CHAIN Gender Identity Not on file Sexual Orientation Not on file documented as of this encounter Plan of Treatment Not on file documented as of this encounter Visit Diagnoses Not on filedocumented in this encounter Care Teams Medical Nurse Relationship Specialty Start Date End Date Mally Vidales MD 3305 [facility] YASHIRA ASHRAF [address] PCP - General Internal Medicine - Pediatrics 08/09/22 Nancy Huynh PA-C [address] [place] [address] Physician [employer] Practitioner Dermatology 09/13/22 Mally Vidales MD 3305 [facility] YASHIRA ASHRAF [address] Assigned PCP 11/25/22 Nancy Huynh PA-C [address] [place] [address] Assigned Dermatology Provider 07/06/24 documented as of this encounter
[2024-08-16 10:14] LABS: Bacteria Urine Moderate; RBC Urine 0-2 (0-2); Squamous Epithelial Cell Urine Moderate (None-Few)
--- NOTE | 2024-08-16 10:22 | ED.GENADULT ---
HPI - General Adult General Date Seen: 08/16/24 Chief complaint: Ear/Nose/Throat Problem Stated complaint: Stomach Pain Time Seen by Provider: 08/16/24 09:28 Source: patient, RN notes reviewed and old records reviewed Mode of arrival: ambulatory Limitations: no limitations History of Present Illness HPI narrative: Patient is a 29-year-old female who has been sick with the runny nose, left ear pain for the past 5-6 days, she has been to urgent care 3 times during this time in [place]. She has received Zithromax 3 days ago, she received a dosage of dexamethasone, and her triple swab was negative. She reports that she has never been this sick in the, is developed the last 48 hours some upper abdominal discomfort also she is not vomiting, not passing any blood in her stools no diarrhea associated with this she is not eating a lot, says she has can not sleep because she is coughing at night. She has a lot of pressure in her face all region in left ear. Taking Tylenol and ibuprofen. History of done approximately 6 months ago no other history of immunosuppression, Does not remember what her allergy to penicillin is, she just avoid this. Related Data Previous Rx's ?Medication ?Instructions ?Recorded azithromycin 250 mg tablet See Rx Instructions PO .COMPLEX #6 08/14/24 tabs cephalexin 500 mg capsule 500 mg PO TID #30 caps 08/16/24 prednisone 20 mg tablet 20 mg PO BID #14 tabs 08/16/24 Allergies Allergy/AdvReac Type Severity Reaction Status Date / Time gluten Allergy Severe Diarrhea Verified 08/16/24 09:33 Penicillins Allergy itchy Verified 08/16/24 09:33 throat Sulfa (Sulfonamide Allergy hives Verified 08/16/24 09:33 Antibiotics) zantac Allergy hives Uncoded 08/14/24 15:57 Review of Systems Status of ROS: Reports: 10 or more systems reviewed and unremarkable except as noted in History and below [facility] Medical History Otitis media ?H66.90 - Otitis media, unspecified, unspecified ear (ICD-10) Vaginal bleeding in ?O46.90 - Antepartum hemorrhage, unspecified, unspecified trimester (ICD-10) Anemia affecting , antepartum ?O99.019 - Anemia complicating , unspecified trimester (ICD-10) Spontaneous miscarriage ?O03.9 - Complete or unspecified spontaneous without complication (ICD-10) Vertebral artery dissection ?I77.74 - Dissection of vertebral artery (ICD-10) Folliculitis ?L73.9 - Follicular disorder, unspecified (ICD-10) Surgical History Status post primary low transverse section (12/29/23) ?Z98.891 - History of uterine scar from previous surgery (ICD-10) History of appendectomy ?Z90.49 - Acquired absence of other specified parts of digestive tract (ICD-10) Family History Father Adopted Mother Adopted Social History Narrative: Occupation: Did not indicate. Marital status: . Catholic/cultural needs: no. Chemical or radiation exposure: no. Pre- tobacco use: no. Pre- alcohol use: 1-3 per week. Current tobacco use: no. Current alcohol use: no. Recreational drug use: no. Dietary restrictions: Gluten free. Blood transfusion acceptable in an emergency: yes. PSYCHOSOCIAL HISTORY: History of depression or currently depressed: Denies. Current or past physical, emotional, or sexual mistreatment: Denies. Problems that will make it hard to make it to appointments: No. What is your current living situation?: I presently have a place to live Problems where you live: no known problems In the past 12 months, utilities in danger of being shut off: no In past 12 months, lack of transportation kept you from medical appts, meetings, work, or getting things needed for daily living: no In the past 12 mos, have been you worried that your food would run out before you had money to buy more?: never true In the past 12 mos, the food you bought just didn't last and you didn't have money to buy more?: never true Smoking Status: Never smoker How often do you have a drink containing alcohol: monthly or less AUDIT-C Alcohol total score: 1 Non-prescribed substance use: denies use How often does anyone, including family, friends and others, physically hurt you: never How often does anyone, including family, friends and others, insult or talk down to you: never How often does anyone, including family, friends and others, threaten you with harm: never How often does anyone, including family, friends and others, scream or curse at you: rarely Health Related Social Needs: Other personal risk factors, not elsewhere classified (Z91.89) Exam Narrative: Exam Narrative: On examination in room 4 she is nontoxic but very teary, looks tired also. Pupils equal round reactive to light there is no scleral icterus redness or TMs bilaterally show left-sided otitis media with the bulging, right-sided is normal nasal mucosa shows some purulence on the left, some pressure over the both the frontal and also maxillary sinuses. Oropharynx is otherwise normal neck is supple, normal mouth opening, no lymphadenopathy anterior posterior chains, and no evidence of any meningismus with this. Chest is good air entry bilaterally easy respirations heart sounds normal. Abdomen is soft there is no guarding no organomegaly negative Messer sign bowel sounds are normal, skin reveals no petechiae rashes she moves all extremities independently and well. Const: Vital Signs, click to edit/add: Vital Signs - 24 hr 08/16/24 09:34 Temperature 98.7 F Pulse Rate [Pulse Oximeter] 105 H Respiratory Rate 20 Blood Pressure [Le ft Upper Arm] 111/80 Pulse Oximetry 98 Oxygen Delivery Me thod Room Air Documenting provider has reviewed patient's vital signs: yes Course Course ED Course: Patient reports that she is feeling a lot better after 2 L of fluid, the medications I do think that she has clinical sinusitis along with a left otitis media, and a UTI. I discussed with her antibiotics Zithromax is not a good coverage for any of these. I think Keflex would be reasonable, she does not have anaphylaxis to penicillins, does not remember being on Keflex but I do not think it would be unreasonable to try this as a gets good coverage for the other issues. Also some prednisone would also be a good idea. We will do this for 7 days, further issues or questions I would direct her to ENT, or back to the emergency room. We have gone over this. Vital Signs Vital signs: Initial Vital Signs Temperature 98.7 F 08/16/24 09:34 Temperature Source Temporal Artery Scan 08/16/24 09:34 Pulse Rate 105 H 08/16/24 09:34 Respiratory Rate 20 08/16/24 09:34 Blood Pressure 111/80 08/16/24 09:34 Blood Pressure Mean 90 08/16/24 09:34 Pulse Oximetry 98 08/16/24 09:34 Oxygen Delivery Method Room Air 08/16/24 09:34 Vital Signs Temperature 98.7 F 08/16/24 09:34 Pulse Rate 105 H 08/16/24 09:34 Respiratory Rate 20 08/16/24 09:34 Blood Pressure 111/80 08/16/24 09:34 Pulse Oximetry 98 08/16/24 09:34 Oxygen Delivery Method Room Air 08/16/24 09:34 Temperature 98.7 F 08/16/24 09:34 Pulse Rate 105 H 08/16/24 09:34 Respiratory Rate 20 08/16/24 09:34 Blood Pressure 111/80 08/16/24 09:34 Pulse Oximetry 98 08/16/24 09:34 Oxygen Delivery Method Room Air 08/16/24 09:34 Medications Administered Medications: Generic Name Dose Route Start Last Admin Trade Name Freq PRN Reason Stop Dose Admin Sodium Chloride 1,000 mls @ 1,000 mls/hr 08/16/24 11:15 08/16/24 11:07 0.9 % Sodium Chloride 1000 Ml IV 08/16/24 12:14 1,000 mls/hr .Q1H PORTER Administration Discontinued Medications Generic Name Dose Route Start Last Admin Trade Name Freq PRN Reason Stop Dose Admin Sodium Chloride 1,000 mls @ 1,000 mls/hr 08/16/24 10:00 08/16/24 10:23 0.9 % Sodium Chloride 1000 Ml IV 08/16/24 10:59 1,000 mls/hr .Q1H PORTER Administration Ketorolac Tromethamine 30 mg 08/16/24 09:48 08/16/24 10:24 Ketorolac 30 Mg/Ml Inj IVP 08/16/24 09:49 30 mg ONCE ONE Administration Methylprednisolone Sodium Succinate 125 mg 08/16/24 09:49 08/16/24 10:24 Methylprednisolone Sod Succ 62.5 Mg/Ml (125) IVP 08/16/24 09:50 125 mg ONCE ONE Administration Pantoprazole Sodium 40 mg 08/16/24 09:48 08/16/24 10:24 Pantoprazole Sodium 40 Mg Inj IVP 08/16/24 09:49 40 mg ONCE ONE Administration Medical Decision Making MDM Narrative Medical decision making narrative: I explained to her that I feel that she has that left otitis media along with likely sinusitis, and she likely has had bit of a reaction to the Zithromax which can cause some stomach or GI upset. I am not getting a feeling this is an acute abdomen, but I do believe at 4 visits total now at this point we will do some labs give her some IV fluids I will also give her some Protonix. And some Toradol IV. Give her doses of Solu-Medrol also. Medical Records Medical records reviewed: Yes I reviewed the patient's medical records Medical records narrative: Reviewed 3 previous visits from urgent care. Lab Data Lab results reviewed: Yes I reviewed the patient's lab results Labs: Lab Results 08/16/24 08/16/24 Range/Units 09:57 10:15 WBC 7.03 (4.50-11.00) K/uL RBC 4.84 (4.00-5.20) m/uL Hgb 14.0 (12.0-16.0) gm/dL Hct 40.9 (33.0-51.0) % MCV 85 (80-100) fL MCH 29 (26-34) pg MCHC 34 (32-36) gm/dL RDW Coeff of Ethel 12.8 (11.5-15.5) % Plt Count 246 (140-440) K/uL Neut % (Auto) 66.5 (42.0-72.0) % Lymph % (Auto) 24.0 (20-44) % Morgan % (Auto) 7.1 (0.0-11.0) % Eos % (Auto) 1.8 (0.0-7.0) % Baso % (Auto) 0.3 (0.0-3.0) % Neut # (Auto) 4.67 (1.7-7.0) K/uL Lymph # (Auto) 1.69 (0.90-2.90) K/uL Morgan # (Auto) 0.50 (0.00-0.90) K/UL Eos # (Auto) 0.13 (0.00-0.50) K/uL Baso # (Auto) 0.02 (0.00-0.30) K/uL Abs Immat Gran (auto) 0.02 (0.00-0.30) K/uL Imm/Tot Granulo (auto) 0.3 % Sodium 139 (135-149) mmol/L Potassium 4.1 (3.6-5.1) mmol/L Chloride 105 (96-114) mmol/L Carbon Dioxide 24 (20-32) mmol/L Anion Gap 10 (7-15) mEq/L BUN 8 (5-24) mg/dL Creatinine 0.7 (0.5-1.5) mg/dL Estimated Creat Clear 105.74 Estimated GFR 119 ml/min Glucose 91 (60-115) mg/dL Calcium 9.5 (8.4-10.6) mg/dL Total Bilirubin 0.4 (0.1-1.5) mg/dL Direct Bilirubin 0.3 (0.0-0.5) mg/dL AST 31 (12-35) U/L ALT 29 (4-35) U/L Alkaline Phosphatase 87 (40-150) U/L Total Protein 8.0 (6.0-8.3) g/dL Albumin 4.4 (3.3-5.0) g/dL Lipase 48 (23-300) U/L Urine Color Yellow (Yellow) Urine Appearance Clear (Clear) Urine pH 7.0 (5.0-8.5) Ur Specific [place] 1.010 (1.000-1.030) Urine Protein Negative (Negative) Urine Glucose (UA) Negative (Negative) Urine Ketones Negative (Negative) Urine Blood Trace-lysed A (Negative) Urine Nitrite Negative (Negative) Urine Bilirubin Negative (Negative) Urine Urobilinogen 0.2 (0.2-1.0) Ur Leukocyte Esterase 1+ A (Negative) Urine RBC 0-2 (0-2) Urine WBC 10-25 A (0-5) Ur Squamous Epith Cells Moderate A (None-Few) Urine Bacteria Moderate A (None) Imaging Data Chest x-ray: Attestation: I have reviewed the pertinent imaging results. My impression: No acute finding Radiologist's impression: [address] [id number] Diagnostic Imaging Report Patient: Caryn Coyle MR#: [id number] : 1995 Acct:[id number] Loc: ED Service Date: 08/16/[address]: Ordering Physician: Terry Vallecillo M.D. Date of Service: 08/16/24 Procedure(s): XR chest 2V Accession Number(s): [id number] cc: Provider,Not a Local; Terry Vallecillo M.D.~ For Patients: As a result of the Cures Act, medical imaging exams and procedure reports are released immediately into your electronic medical record. You may view this report before your referring provider. If you have questions, please contact your health care provider. INDICATION: Cough, congestion TECHNIQUE: Chest 2 views. COMPARISON: None FINDINGS: The heart is normal in size. The pulmonary vasculature is within normal limits. The lungs are clear without focal consolidation, pleural effusion or pneumothorax. Bones are unremarkable. IMPRESSION: No acute process. Dictated by Roxy Witt MD @ 08/16/2024 10:16:30 AM (Electronically Signed) Discharge Plan Discharge Clinical Impression: Sinusitis, Acute right otitis media, Urinary tract infection Patient Disposition: Home, Self-Care Condition: Improved Instructions: Urinary Tract Infection in Women (DC), Sinusitis (ED), Ear Infection (ED) Additional Instructions: Home rest we will use Keflex, you may takes this starting today, it is somewhat related to amoxicillin although I do not think we are going to have a reaction to this. Recommend you take the prednisone also has recommended, you may use a decongestant also, use those techniques I told doable popping ears to promote drainage also return back if increasing fevers chills nausea vomiting or other issues. Stop the Zithromax at this point. Stopping ibuprofen also help her stomach, just using Tylenol along with the prednisone. Activity Level: Light activity Discharge Diet: Regular Prescriptions: New cephalexin 500 mg capsule 500 mg PO TID Qty: 30 0RF prednisone 20 mg tablet 20 mg PO BID Qty: 14 0RF No Action azithromycin 250 mg tablet See Rx Instructions PO .COMPLEX Qty: 6 0RF Rx Instructions: For 250 mg dose pack: take 500 mg today (day 1), then 250 mg for 4 days (days 2-5) PO Follow Up/Referrals: Provider,Not a Local [Primary Care Provider] - Stand Alone Forms: Echo itealth Info Instructions
[2024-08-16] MEDS: 0.9 % SODIUM CHLORIDE 1000 ml 1,000 ML IV ×2 (10:23→11:07)
[2024-08-16] MEDS: METHYLPREDNISOLONE SOD SUCC 62.5 MG/ML (125) 125 MG IVP (10:24)
[2024-08-16] MEDS: PANTOPRAZOLE SODIUM 40 MG INJ IVP (10:24)
[2024-08-16] MEDS: KETOROLAC 30 MG/ML inj IVP (10:24)
[2024-08-16 10:25] LABS: Basophils Absolute Auto 0.02 K/uL (0.00-0.30); Basophils Percent Auto 0.3 % (0.0-3.0); Eosinophils Absolute Auto 0.13 K/uL (0.00-0.50); Eosinophils Percent Auto 1.8 % (0.0-7.0); Hematocrit 40.9 % (33.0-51.0); Immature Granulocytes Abs Auto 0.02 K/uL (0.00-0.30); Immature Granulocytes Pct Auto 0.3 %; Lymphocytes Absolute Auto 1.69 K/uL (0.90-2.90); Mean Corpuscular HGB Conc 34 gm/dL (32-36); Mean Corpuscular Hemoglobin 29 pg (26-34); Mean Corpuscular Volume 85 fL (80-100); Monocytes Percent Auto 7.1 % (0.0-11.0); Neutrophils Absolute Auto 4.67 K/uL (1.7-7.0); Neutrophils Percent Auto 66.5 % (42.0-72.0); Platelet Count* 246 K/uL (140-440); RDW Coefficient of Variation % 12.8 % (11.5-15.5); Red Blood Count 4.84 m/uL (4.00-5.20); White Blood Count* 7.03 K/uL (4.50-11.00)
[2024-08-16 10:27] LABS: Slide Review Reflex No
[2024-08-16 10:38] LABS: Albumin* 4.4 g/dL (3.3-5.0); Chloride* 105 mmol/L (96-114); Potassium* 4.1 mmol/L (3.6-5.1); Sodium* 139 mmol/L (135-149)
[2024-08-16 10:41] LABS: Alanine Aminotransferase* 29 U/L (4-35); Alkaline Phosphatase* 87 U/L (40-150); Anion Gap 10 mEq/L (7-15); Aspartate Amino Transferase* 31 U/L (12-35); Bilirubin Direct* 0.3 mg/dL (0.0-0.5); Bilirubin Total* 0.4 mg/dL (0.1-1.5); Blood Urea Nitrogen* 8 mg/dL (5-24); Calcium* 9.5 mg/dL (8.4-10.6); Carbon Dioxide* 24 mmol/L (20-32); Creatinine* 0.7 mg/dL (0.5-1.5); Est. Creatinine Clearance* 105.74; Estimated Glomerular Filt Rate 119 ml/min; Glucose* 91 mg/dL (60-115); Lipase* 48 U/L (23-300)
== END 2024-08-16 12:07 | disposition home or self-care (01) ==
PROVIDERS: Emergency Provider Family Medicine
DX: J32.9 Chronic sinusitis, unspecified (principal); N39.0 Urinary tract infection, site not specified; H66.92 Otitis media, unspecified, left ear
CPT/HCPCS: 36415; 71046; 80048; 80076; 81001; 83690; 85025; 87086; 96374; 96375; 99284; J1885; J2470; J2919; J7030